=== PATIENT | female | born 1960 ===

== ENCOUNTER 2017-09-02 18:20 | Inpatient (IN) | payer BC, OTHER ==
--- NOTE | 2017-09-02 19:45 | C.PDOC ---
History Of Present Illness Patient presents to the ER with a complaint of not feeling well, states she had palpitations and a possible syncopal episode today. Patient had dental surgery yesterday and was put on decreased doses of coumadin. Patient takes coumadin for a mitral valve replacement she had due to rheumatic fever. Denies fever, chills, SOB, or chest pain. Time Seen by Provider: 09/02/17 19:44 Chief Complaint (Nursing): Palpitations History Per: Patient History/Exam Limitations: no limitations Onset/Duration Of Symptoms: Hrs Current Symptoms Are (Timing): Still Present Associated Symptoms: Other (Palpitations, Possible syncope). denies: Chest Pain , Dyspnea, Dizziness, Blurred Vision, Focal Weakness, Headache Quality Of Symptoms: Other (Palpitations) Severity: Moderate Pain Scale Rating Of: 4 Exacerbating Factor(s): Pos: Recent Change In Medication Recent travel outside of the [place]: No Additional History Per: Family Past Medical History Reviewed: Historical Data, Nursing Documentation, Vital Signs Vital Signs: Last Vital Signs Temp 98 F 09/02/17 18:30 Pulse Resp 105 H 09/02/17 18:30 BP 104/70 09/02/17 18:30 Pulse Ox 98 09/02/17 20:24 - Medical History PMH: Anxiety, Back Problems (chronic neck and upper back pain), CAD, Cardia Arrhythmia, Depression, Gastritis, Hypercholesterolemia Surgical History: Appendectomy, Pacemaker, (x 3) - [facility] APPLICATION OF SPLINT (11/05/14) Family History: States: No Known Family Hx - Social History Hx Tobacco Use: No Hx Alcohol Use: No Hx Substance Use: No - Immunization History Hx Tetanus Toxoid Vaccination: No Hx Influenza Vaccination: No Hx Pneumococcal Vaccination: No Review Of Systems Constitutional: Negative for: Fever, Chills Eyes: Negative for: Redness Cardiovascular: Positive for: Palpitations. Negative for: Chest Pain Respiratory: Negative for: Shortness of Breath Gastrointestinal: Negative for: Nausea, Vomiting Genitourinary: Negative for: Dysuria Musculoskeletal: Negative for: Back Pain Skin: Negative for: Rash Neurological: Positive for: Other (Possible syncopal episode) Psych: Negative for: Anxiety Physical Exam - Physical Exam Appears: Non-toxic, No Acute Distress Skin: Warm, Dry Head: Normacephalic Eye(s): bilateral: Normal Inspection, PERRL, EOMI Oral Mucosa: Moist Neck: Supple Chest: Symmetrical, No Tenderness, Other (pacer right side) Cardiovascular: Rhythm Regular, Murmur (Click, 2/6 systolic murmur) Respiratory: No Rales, No Rhonchi, No Wheezing Gastrointestinal/Abdominal: Soft, No Tenderness Back: Normal Inspection Extremity: Normal ROM Extremity: Bilateral: Atraumatic Pulses: Left Dorsalis Pedis: Normal, Right Dorsalis Pedis: Normal Neurological/Psych: Oriented x3, Normal Speech, Normal Cranial Nerves Gait: Steady ED Course And Treatment - Laboratory Results Result Diagrams: 09/02/17 20:24 09/02/17 20:24 ECG: Interpreted By Me, Viewed By Me ECG Rhythm: Sinus Rhythm (104), Nonspecific Changes (atrial sensed ventricular paced rhythm) O2 Sat by Pulse Oximetry: 98 Pulse Ox Interpretation: Normal - Radiology CXR: Interpreted by Me, Viewed By Me CXR Interpretation: Yes: Other (pacermaker left, MVR in place). No: Infiltrates , Fracture, Pnemothorax Progress Note: CT head, EKG, blood work, CXR, and urinalysis ordered. Disposition Discussed With : Brent Conklin Comment: accepted the pt on his service and took over the care at Doctor Will See Patient In The: ED Counseled Patient/Family Regarding: Studies Performed, Diagnosis - Disposition Disposition: HOSPITALIZED Disposition Time: 19:45 Condition: FAIR Forms: [facility] (Kiswahili) - POA Present On Arrival: None - Clinical Impression Clinical Impression: NSTEMI (non-ST elevated myocardial infarction), Palpitations, Syncope - Scribe Statement The provider has reviewed the documentation as recorded by the Scribricardo Thomas All medical record entries made by the Kristineibe were at my direction and personally dictated by me. I have reviewed the chart and agree that the record accurately reflects my personal performance of the history, physical exam, medical decision making, and the department course for this patient. I have also personally directed, reviewed, and agree with the discharge instructions and disposition. Decision To Admit - Pt Status Changed To: Hospital Disposition Of: Inpatient - Admit Certification Admit to Inpatient:: After my assessment, the patient will require hospitalization for at least two midnights. This is because of the severity of symptoms shown, intensity of services needed, and/or the medical risk in this patient being treated as an outpatient. - InPatient: Physician Admission Certification: I certify that this patient requires 2 or more midnights of care for the following reason:: After my assessment, the patient will require hospitalization for at least two midnights. This is because of the severity of symptoms shown, intensity of services needed, and/or the medical risk in this patient being treated as an outpatient. - . Bed Request Type: Telemetry Admitting Physician: Brent Conklin Patient Diagnosis: NSTEMI (non-ST elevated myocardial infarction), Palpitations, Syncope
[2017-09-02 20:27] LABS: BASO # 0.1 K/uL (0.0-0.2); EOS # 0.1 K/uL (0.0-0.7); EOS % 1.5 % (0.0-4.0); HEMATOCRIT 36.9 % (34.0-47.0); LYMPH # 2.8 K/uL (1.0-4.3); LYMPH % 30.6 % (20.0-40.0); MEAN CELL VOLUME 87.5 fL (81.0-99.0); MEAN CORPUSCULAR HEMOGLOBIN 29.1 pg (27.0-31.0); MEAN CORPUSCULAR HGB CONC 33.3 g/dL (33.0-37.0); MEAN PLATELET VOLUME 8.2 fL (7.2-11.7); MONO # 0.8 K/uL (0.0-0.8); MONO % 9.3 % (0.0-10.0); RED CELL DISTRIBUTION WIDTH 13.8 % (11.5-14.5); WHITE BLOOD COUNT 9.1 K/uL (4.8-10.8)
[2017-09-02 20:44] LABS: RBC URINE 9 /hpf (0-3); URINE BACTERIA OCC (<OCC); URINE BILIRUBIN NEGATIVE (NEGATIVE); URINE BLOOD 2+ (NEGATIVE); URINE COLOR Straw (YELLOW); URINE GLUCOSE (UA) NORMAL (Normal); URINE KETONE NEGATIVE (NEGATIVE); URINE LEUKOCYTE ESTERASE 1+ Leu/uL (Negative); URINE PROTEIN NEGATIVE (NEGATIVE); URINE UROBILINOGEN NORMAL mg/dL (0.2-1.0); WBC URINE 2 /hpf (0-5)
[2017-09-02 20:44] LABS: ALKALINE PHOSPHATASE 79 U/L (38-126); ALT/SGPT 50 U/L (9-52); AST/SGOT 37 U/L (14-36); BILIRUBIN,TOTAL 0.4 mg/dL (0.2-1.3); BLOOD UREA NITROGEN 15 mg/dL (7-17); CALCIUM 8.6 mg/dl (8.6-10.4); CARBON DIOXIDE 32 mmol/L (22-30); CHLORIDE 103 mmol/L (98-107); GFR AFRICAN-AMERICAN > 60; GLUCOSE,RANDOM 92 mg/dL (65-105); POTASSIUM 3.5 mmol/L (3.6-5.2); SODIUM 143 mmol/L (132-148); TOTAL PROTEIN 8.3 g/dL (6.3-8.3)
[2017-09-02 20:56] LABS: INR 2.9
[2017-09-02] MEDS ORDERED: Oxycodone/Acetaminophen 5/325 mg Tab PO STA (21:09)
[2017-09-02] MEDS ORDERED: Oxycodone/Acetaminophen 5/325 mg Tab ONE (21:15)
[2017-09-02] MEDS ORDERED: Home Med 1 UNIT (Acetaminophen/Oxycodone Hydr [Percocet 10/325 Mg Tab] 1 TAB) PO PRN (21:28)
[2017-09-02] MEDS ORDERED: AMOXICILLIN 500 MG PO SCH (22:00)
[2017-09-02] MEDS ORDERED: CLONAZEPAM 1 MG PO SCH (22:00)
[2017-09-02] MEDS ORDERED: Oxycodone/Acetaminophen 5/325 mg Tab PO PRN (22:45)
[2017-09-03] MEDS: Oxycodone/Acetaminophen 5/325 mg Tab PO PRN ×3 (04:46→17:44)
[2017-09-03 05:19] LABS: TROPONIN I 0.392 ng/mL (0.00-0.120)
[2017-09-03 08:14] LABS: BASO # 0.1 K/uL (0.0-0.2); BASO % 1.1 % (0.0-2.0); EOS # 0.1 K/uL (0.0-0.7); EOS % 2.7 % (0.0-4.0); HEMATOCRIT 34.5 % (34.0-47.0); LYMPH # 2.1 K/uL (1.0-4.3); LYMPH % 39.2 % (20.0-40.0); MEAN CELL VOLUME 87.7 fL (81.0-99.0); MEAN CORPUSCULAR HEMOGLOBIN 29.3 pg (27.0-31.0); MEAN CORPUSCULAR HGB CONC 33.4 g/dL (33.0-37.0); MEAN PLATELET VOLUME 8.3 fL (7.2-11.7); MONO # 0.4 K/uL (0.0-0.8); MONO % 7.8 % (0.0-10.0); NRBC % 0.1 % (0.0-2.0); RED CELL DISTRIBUTION WIDTH 13.7 % (11.5-14.5); WHITE BLOOD COUNT 5.5 K/uL (4.8-10.8)
[2017-09-03 08:25] LABS: ALB/GLOB RATIO 1.4 (1.0-2.1); ALKALINE PHOSPHATASE 72 U/L (38-126); ALT/SGPT 36 U/L (9-52); AST/SGOT 28 U/L (14-36); BILIRUBIN,TOTAL 0.4 mg/dL (0.2-1.3); BLOOD UREA NITROGEN 14 mg/dL (7-17); CALCIUM 8.3 mg/dl (8.6-10.4); CARBON DIOXIDE 30 mmol/L (22-30); CHLORIDE 108 mmol/L (98-107); CHOLESTEROL 208 mg/dL (0-199); GFR AFRICAN-AMERICAN > 60; GLUCOSE,RANDOM 96 mg/dL (65-105); POTASSIUM 4.2 mmol/L (3.6-5.2); SODIUM 144 mmol/L (132-148); TOTAL PROTEIN 6.4 g/dL (6.3-8.3)
[2017-09-03 08:29] LABS: INR 3.2
--- NOTE | 2017-09-03 09:06 | CT ---
PROCEDURE: CT HEAD WITHOUT CONTRAST. HISTORY: syncope COMPARISON: None available. TECHNIQUE: Axial computed tomography images were obtained through the head/brain without intravenous contrast. Radiation dose: Total exam DLP = 865.69 mGy-cm. This CT exam was performed using one or more of the following dose reduction techniques: Automated exposure control, adjustment of the mA and/or kV according to patient size, and/or use of iterative reconstruction technique. FINDINGS: HEMORRHAGE: No intracranial hemorrhage. BRAIN: No mass effect or edema. Mild atrophy. VENTRICLES: Unremarkable. No hydrocephalus. CALVARIUM: Unremarkable. PARANASAL SINUSES: Unremarkable as visualized. No significant inflammatory changes. MASTOID AIR CELLS: Unremarkable as visualized. No inflammatory changes. OTHER FINDINGS: None. IMPRESSION: No evidence of acute intracranial hemorrhage intracranial collection mass effect or midline shift
--- NOTE | 2017-09-03 09:25 | RAD ---
PROCEDURE: CHEST RADIOGRAPH, 1 VIEW HISTORY: chest pain COMPARISON: Comparison is made to 11/05/2014 FINDINGS: LUNGS: No evidence of focal infiltrate or consolidation in the lungs PLEURA: No pneumothorax or pleural fluid seen. CARDIOVASCULAR: The cardiac silhouette is normal in size. Left-sided pacemaker is seen in place. Patient status post sternotomy. OSSEOUS STRUCTURES: No significant abnormalities. VISUALIZED UPPER ABDOMEN: Normal. OTHER FINDINGS: None. IMPRESSION: No significant interval change since the previous exam noted. No radiographic evidence of acute pulmonary disease.
[2017-09-03 09:34] LABS: THYROID STIMULATING HORMONE 1.55 mIU/L (0.46-4.68)
[2017-09-03] MEDS: Ergocalciferol 50,000 Intl Units Cap PO SCH (10:51)
[2017-09-03] MEDS: Pantoprazole 40 mg EC Tab PO SCH (10:52)
[2017-09-03 12:14] LABS: TROPONIN I 0.231 ng/mL (0.00-0.120)
--- NOTE | 2017-09-03 23:20 | CON ---
CARDIOLOGY CONSULTATION REQUESTED BY: Brent Conklin MD. LOCATION: Presently in [address] HISTORY OF PRESENT ILLNESS: Requested to see this 57 years old female with a history of aortic valve replacement with mechanical prosthesis many years ago as well as permanent pacemaker, admitted after enormous fainting episode and not feeling well. Apparently, she was taking a shower and had shower and she was feeling as fainting and she slowly sat on the shower stall and finally came out. She told me that she did know that she was totally conscious and that she did not hit the floor in anyway. She did not pass out. For the rest of the day, she was feeling uneasy and she talked to her friends and family and they advised her to come to the emergency room several hours later. On arrival here, she appeared to be relatively stable, in no distress whatsoever. However, in view of the history with a valve replacement and pacemaker, etc. and the initial troponins were mildly borderline elevated, she was admitted there for further treatment. Several days ago, she underwent oral surgery and she was taking medications including amoxicillin and Percocet. However, she takes Percocet chronically for years due to some significant arthritis. Presently, she appears totally stable. Denies any problems except for the chronic pain that she has had. She is ambulatory, walking around and may have walked around the hallway and she felt totally fine. PAST MEDICAL HISTORY: As mentioned includes aortic valve replacement about 5 to 7 years ago. This was done in the [facility] in [place] due to a rheumatic fever during the childhood. This was replaced with a [employer] mechanical prosthesis and she has been all alone anticoagulated with warfarin. Her INR today is about 3.2. At the same time, she underwent permanent pacemaker insertion. ALLERGIES: SHE HAS ALLERGY TO TETANUS TOXOID. SOCIAL HISTORY: She does not smoke or drink. PHYSICAL EXAMINATION: GENERAL: Physical exam reveals a senior female, appears younger for her age, in no distress whatsoever. VITAL SIGNS: Remains totally stable. Here, latest blood pressure is about 120/80. She is afebrile and O2 saturation is 95 on room air. SKIN: Warm, dry. No cyanosis. No edema. HEAD, EAR, NOSE AND THROAT: Basically unremarkable at this point in time. NECK: Supple, although she has a lot of pain in the neck chronically "due to arthritis and disk problems." CHEST: Lung sounds are totally clear to auscultation. There is a mid sternotomy scar. No thrills. Auscultation reveals heart sounds normal in intensity and there is a metallic click due to the artificial heart valve. ABDOMEN: Unremarkable. CENTRAL NERVOUS SYSTEM: Totally intact. COMPLEMENTARY DATA: CBC is unremarkable. INR today is 3.2, yesterday 2.9, which is very acceptable because of the mechanical prosthesis. Troponin that had been trending down initially at 0.68, second one at 0.39 and the third one at 0.23, trending down. BNP about 2000. Lipids are elevated with total cholesterol 2.8, LDL of 141. EKG showing the AV sequential pacemaker. Chest x-ray, we cannot view at this point in time due to some technical difficulties. There is no evidence of any acute cardiopulmonary issues. I will try to look at the x-rays sometime later when the system is up. I am getting some issues here. ASSESSMENT: Status post aortic valve replacement, status post pacemaker, almost fainting episode yesterday, multifactorial, perhaps vasovagal related to the medications. Cardiac arrhythmias cannot be excluded. Mildly elevated troponins. PLAN: We will continue observation here. She is back on some of her medications. She is totally stable. Depending upon further investigation including echocardiogram, we will consider cardiac stress testing. Reddy Mcclendon MD cc: Brent Conklin MD MTDD
[2017-09-04] MEDS: Oxycodone/Acetaminophen 5/325 mg Tab PO PRN ×4 (03:08→23:47)
[2017-09-04] MEDS: Pantoprazole 40 mg EC Tab PO SCH (09:35)
[2017-09-04 11:25] LABS: INR 3.1
--- NOTE | 2017-09-04 23:16 | CARD ---
APPROVED REPORT EXAM: Two-dimensional and M-mode echocardiogram with Doppler and color Doppler. Other Information Quality : LimitedRhythm : INDICATION Cardiac Disease: CAD Syncope Non STEMI Palpitations Surgery/Intervention Status/Post Aortic Valve Replacement: Mechanical Pacemaker: RISK FACTORS Hyperlipidemia 2D DIMENSIONS IVSd1.1 (0.7-1.1cm)LVDd4.8 (3.9-5.9cm) LVOT Diameter2.4 (1.8-2.4cm)PWd1.0 (0.7-1.1cm) LVDs2.6 (2.5-4.0cm)FS (%) 46.6 % LVEF (%)78.0 (>50%) Aortic Valve AoV Peak Nuzwxuax871.1cm/sAoV VTI37.4cmAO Peak GR.22mmHg LVOT Peak Joxertpi948.0cm/sLVOT VTI17.54cmAO Mean GR.13mmHg NICKI (VMAX)1.39gj1XYG (VTI)2.20cm2 Mitral Valve MV E Vbtlrwrx23.3cm/sMV A Ucetkahp44.0cm/sE/A ratio0.9 TDI E/Lateral E'0.0E/Medial E'0.0 Tricuspid Valve TR Peak Hacsrric391hd/sTR Peak Gr.65yfEwIUAG18vpGl LEFT VENTRICLE The left ventricle is normal size. There is borderline concentric left ventricular hypertrophy. Left ventricle systolic function is normal. The Ejection Fraction is 60-65%. There is mild hypokinesis in the mid-anterior wall. Transmitral Doppler flow pattern is Grade I-abnormal relaxation pattern. There is no ventricular septal defect visualized. RIGHT VENTRICLE The right ventricle is normal size. The right ventricular systolic function is normal. There is a pacemaker lead in the right ventricle. ATRIA The left atrium is borderline dilated. The right atrium size is normal. AORTIC VALVE There is trace aortic regurgitation. With a probable central jet, although unclear but probably no perivalvular leak. Peak gradient of 22 mmHg across the aortic valve, probably acceptable range for a mechanical valve There is a mechanical aortic valve prosthesis. The prosthetic aortic valve appears well seated. Bioprosthesis leaflets are not well visualized. MITRAL VALVE Mitral annular calcification is mild. Mildly thickened posterior leaflet, regurgitation could not be ruled out There is no evidence of mitral valve prolapse. Mitral regurgitation is mild. TRICUSPID VALVE The tricuspid valve is normal in structure. There is mild to moderate tricuspid regurgitation. There is no pulmonary hypertension. PULMONIC VALVE The pulmonic valve is not well visualized. There is trace pulmonic valvular regurgitation. GREAT VESSELS The aortic root is mildly enlarged. 3.9 cm The ascending aorta is normal in size. The IVC is normal in size and collapses >50% with inspiration. PERICARDIAL EFFUSION There is no pericardial effusion. <Conclusion> There is borderline concentric left ventricular hypertrophy. There is mild hypokinesis in the mid-anterior wall. Transmitral Doppler flow pattern is Grade I-abnormal relaxation pattern. Left ventricle systolic function is normal. The Ejection Fraction is 60-65%. There is a mechanical aortic valve prosthesis. The prosthetic aortic valve appears well seated. Mitral regurgitation is mild.
--- NOTE | 2017-09-05 00:42 | CARD ---
APPROVED REPORT EKG Measurement Heart [id number] [place] [id number] <Conclusion> Atrial-sensed ventricular-paced rhythm Abnormal ECG
--- NOTE | 2017-09-05 00:42 | CARD ---
APPROVED REPORT EKG Measurement Heart [id number] [place] 184P36 [id number] <Conclusion> Atrial-sensed ventricular-paced rhythm Abnormal ECG
--- NOTE | 2017-09-05 01:26 | CP.PCM.HP ---
History of Present Illness - History of Present Illness History of Present Illness: CC: Passed out History of Present Illness: A 57yoF with H/O VHD S/P AV Mechanical Valve Rplacement on Chronic Anticoagulation presented to the ER with a complaint of not feeling well, states she had palpitations and a possible syncopal episode today. Patient had dental surgery yesterday and was put on decreased doses of Coumadin. Patient takes As pr the patint, mitral valve replacement she had was due to rheumatic fever. Denies fever, chills, SOB, or chest pain. H/O Heart block S/p Pacemaker after Valve Replacement surgery. +Dyspnea on exertion. Present on Admission - Present on Admission Any Indicators Present on Admission: No History of DVT/PE: No History of Uncontrolled Diabetes: No Urinary Catheter: No Decubitus Ulcer Present: No Review of Systems - Review of Systems All systems: reviewed and no additional remarkable complaints except - Cardiovascular Cardiovascular: As Per HPI Past Patient History - Infectious Disease Hx of Infectious Diseases: None - Past Medical History & Family History Past Medical History?: Yes Past Family History: Reviewed and not pertinent - Past Social History Smoking Status: Former Smoker Alcohol: None Drugs: Denies - CARDIAC Hx Cardia Arrhythmia: Yes Hx Hypercholesterolemia: Yes Hx Pacemaker: Yes - PULMONARY Hx Respiratory Disorders: No - NEUROLOGICAL Hx Neurological Disorder: Yes Hx Syncope: Yes (due to mitral insufficiency.) - HEENT Hx HEENT Problems: No - RENAL Hx Chronic Kidney Disease: No - ENDOCRINE/METABOLIC Hx Endocrine Disorders: No - HEMATOLOGICAL/ONCOLOGICAL Hx Blood Disorders: No - INTEGUMENTARY Hx Dermatological Problems: No - MUSCULOSKELETAL/RHEUMATOLOGICAL Hx Falls: Yes Hx Herniated Disk: (slipped discs) - GASTROINTESTINAL Hx Gastritis: Yes - GENITOURINARY/GYNECOLOGICAL Hx Genitourinary Disorders: No - PSYCHIATRIC Hx Anxiety: Yes Hx Depression: Yes Hx Substance Use: No - SURGICAL HISTORY Hx Appendectomy: Yes Hx Cardiac Catheterization: Yes Hx Tubal Ligation: No Hx Valve Replacement: Yes (Aortic Mechanical) - ANESTHESIA Hx Anesthesia: Yes Hx Anesthesia Reactions: No Hx Malignant Hyperthermia: No Meds Home Medications: Home Medication List Medication Instructions Recorded Confirmed Type Metoprolol Succinate XL [Toprol XL] 12.5 mg PO DAILY #30 tab 09/14/17 Rx Allergies/Adverse Reactions: Allergies Allergy/AdvReac Type Severity Reaction Status Date / Time tetanus and diphtheria Allergy Mild SWELLING Verified 09/02/17 18:38 toxoids [tetanus & diphtheria toxoids] Physical Exam - Constitutional Appears: Well, No Acute Distress - Head Exam Head Exam: ATRAUMATIC, NORMAL INSPECTION, NORMOCEPHALIC - Eye Exam Eye Exam: EOMI, Normal appearance, PERRL Pupil Exam: NORMAL ACCOMODATION, PERRL - ENT Exam ENT Exam: Mucous Membranes Moist, Normal Exam - Neck Exam Neck exam: Positive for: Full Rom, Normal Inspection - Respiratory Exam Respiratory Exam: Clear to Auscultation Bilateral, NORMAL BREATHING PATTERN - Cardiovascular Exam Cardiovascular Exam: REGULAR RHYTHM, +S1, +S2, Systolic Murmur Additional comments: +Click - GI/Abdominal Exam GI & Abdominal Exam: Normal Bowel Sounds, Soft. absent: Tenderness - Extremities Exam Extremities exam: Positive for: full ROM, normal capillary refill, normal inspection - Back Exam Back exam: NORMAL INSPECTION. absent: CVA tenderness (L), CVA tenderness (R) - Neurological Exam Neurological exam: Alert, CN II-XII Intact, Normal Gait, Oriented x3, Reflexes Normal - Psychiatric Exam Psychiatric exam: Normal Affect, Normal Mood - Skin Skin Exam: Dry, Intact, Normal Color, Warm Results - Vital Signs Recent Vital Signs: Last Vital Signs Temp 97.5 F L 09/04/17 23:20 Pulse 85 09/04/17 23:20 Resp 20 09/04/17 23:20 BP 109/70 09/04/17 23:20 Pulse Ox 96 09/04/17 23:20 - Labs Result Diagrams: 09/14/17 07:17 09/14/17 07:17 Labs: Laboratory Results - last 24 hr 09/04/17 11:08 PT 37.0 H* INR 3.1 - EKG Data EKG comments: Atrial-sensed Ventricular Paced Wide complex Rhythm. - Imaging and Cardiology CT scan - head Status: Report reviewed by me Additional comment: IMPRESSION: No evidence of acute intracranial hemorrhage intracranial collection mass effect or midline shift Chest x-ray Status: Report reviewed by me Additional comment: CHEST RADIOGRAPH: HISTORY: chest pain COMPARISON: Comparison is made to 11/05/2014 FINDINGS: LUNGS: No evidence of focal infiltrate or consolidation in the lungs PLEURA: No pneumothorax or pleural fluid seen. CARDIOVASCULAR: The cardiac silhouette is normal in size. Left-sided pacemaker is seen in place. Patient status post sternotomy. OSSEOUS STRUCTURES: No significant abnormalities. VISUALIZED UPPER ABDOMEN: Normal. OTHER FINDINGS: None. IMPRESSION: No significant interval change since the previous exam noted. No radiographic evidence of acute pulmonary disease. Assessment & Plan (1) Syncope Assessment and Plan: Cardiac Arrhythmia NSTEMI RHD S/P Mechanical Aortic Valve H/O Pacemaker (Interrogate Pacemaker) Chronic Anticoagulation Hold Coumadin for now Start Heparin Infusion once INR O2 Via [place] ASA Serial Trop and EKG TTE Fasting Lipid Profile Cardiology Consulted Status: Acute (2) S/P AVR (aortic valve replacement) Assessment and Plan: Mechanical Valve Cardiology Consulted Continue Anticoagulation Status: Chronic Priority: Medium
--- NOTE | 2017-09-05 01:28 | CP.PCM.PN ---
Subjective - Date & Time of Evaluation Date of Evaluation: 09/04/17 Time of Evaluation: 15:00 - Subjective Subjective: Seen and examined at the bed side. No chest pain or sob at rest. +YEPEZ Objective - Vital Signs/Intake and Output Vital Signs (last 24 hours): Temp Pulse Resp BP Pulse Ox 97.5 F L 85 20 109/70 96 09/04/17 23:20 09/04/17 23:20 09/04/17 23:20 09/04/17 23:20 09/04/17 23:20 Intake and Output: 09/04/17 09/05/17 18:59 06:59 Intake Total 480 500 Balance 480 500 - Medications Medications: Current Medications Amoxicillin (Amoxil 500 Mg Cap) 500 mg PO QID [facility] Last Admin: 09/04/17 22:40 Dose: 500 mg Ascorbic Acid (Vitamin C 500 Mg Tab) 1,000 mg PO DAILY [facility] Last Admin: 09/04/17 09:35 Dose: 1,000 mg Aspirin (Aspirin) 325 mg PO DAILY [facility] Last Admin: 09/04/17 09:35 Dose: 325 mg Clonazepam (Klonopin) 1 mg PO [facility] Last Admin: 09/04/17 22:29 Dose: 1 mg Docusate Sodium (Colace) 100 mg PO BID [facility] Last Admin: 09/04/17 18:10 Dose: 100 mg Docusate Sodium (Colace) 100 mg PO BID [facility] Last Admin: 09/04/17 18:10 Dose: Not Given Ergocalciferol (Drisdol 50,000 Intl Units Cap) 1 cap PO Q7D [facility] Last Admin: 09/03/17 10:51 Dose: Not Given Mirtazapine (Remeron) 30 mg PO [facility] Last Admin: 09/04/17 22:28 Dose: 30 mg Oxycodone/Acetaminophen (Percocet 5/325 Mg Tab) 2 tab PO Q6H PRN PRN Reason: Pain, severe (8-10) Last Admin: 09/04/17 23:47 Dose: 2 tab Pantoprazole Sodium (Protonix Ec Tab) 40 mg PO DAILY [facility] Last Admin: 09/04/17 09:35 Dose: 40 mg Rosuvastatin Calcium (Crestor) 5 mg PO [facility] Last Admin: 09/04/17 22:28 Dose: 5 mg - Labs Labs: 09/03/17 07:57 09/03/17 07:57 PT 37.0 SECONDS (9.7-12.2) H* 09/04/17 11:08 INR 3.1 09/04/17 11:08 APTT 38 SECONDS (21-34) H 09/02/17 20:24 - Constitutional Appears: Well, No Acute Distress - Head Exam Head Exam: ATRAUMATIC, NORMAL INSPECTION, NORMOCEPHALIC - Eye Exam Eye Exam: EOMI, Normal appearance, PERRL Pupil Exam: NORMAL ACCOMODATION, PERRL - ENT Exam ENT Exam: Mucous Membranes Moist, Normal Exam - Neck Exam Neck Exam: Full ROM, Normal Inspection. absent: Lymphadenopathy - Respiratory Exam Respiratory Exam: Clear to Ausculation Bilateral, NORMAL BREATHING PATTERN - Cardiovascular Exam Cardiovascular Exam: REGULAR RHYTHM, +S1, +S2, Murmur Additional comments: +Click. MIdline surgica scars.Left chest PAcemaker . - GI/Abdominal Exam GI & Abdominal Exam: Soft, Normal Bowel Sounds. absent: Tenderness - Extremities Exam Extremities Exam: Full ROM, Normal Capillary Refill, Normal Inspection. absent : Joint Swelling, Pedal Edema - Back Exam Back Exam: NORMAL INSPECTION - Neurological Exam Neurological Exam: Alert, Awake, CN II-XII Intact, Normal Gait, Oriented x3 - Psychiatric Exam Psychiatric exam: Normal Affect, Normal Mood - Skin Skin Exam: Dry, Intact, Normal Color, Warm Assessment and Plan (1) Syncope Assessment & Plan: Cardiac Arrhythmia NSTEMI RHD S/P Mechanical Aortic Valve H/O Pacemaker (Interrogate Pacemaker) Chronic Anticoagulation Hold Coumadin for now Start Heparin Infusion once INR O2 Via [place] ASA Serial Trop and EKG TTE Fasting Lipid Profile Cardiology Consulted Status: Acute (2) S/P AVR (aortic valve replacement) Assessment and Plan: Mechanical Valve Cardiology Consulted Continue Anticoagulation Status: Acute
[2017-09-05 07:31] LABS: BASO # 0.1 K/uL (0.0-0.2); BASO % 2.5 % (0.0-2.0); EOS # 0.2 K/uL (0.0-0.7); EOS % 3.3 % (0.0-4.0); HEMATOCRIT 36.3 % (34.0-47.0); LYMPH # 1.9 K/uL (1.0-4.3); LYMPH % 33.5 % (20.0-40.0); MEAN CELL VOLUME 87.8 fL (81.0-99.0); MEAN CORPUSCULAR HEMOGLOBIN 29.7 pg (27.0-31.0); MEAN CORPUSCULAR HGB CONC 33.8 g/dL (33.0-37.0); MEAN PLATELET VOLUME 8.7 fL (7.2-11.7); MONO # 0.4 K/uL (0.0-0.8); MONO % 7.6 % (0.0-10.0); RED CELL DISTRIBUTION WIDTH 13.5 % (11.5-14.5); WHITE BLOOD COUNT 5.6 K/uL (4.8-10.8)
[2017-09-05 07:38] LABS: INR 3.2
[2017-09-05] MEDS ORDERED: Aminophylline 25 mg/ml Inj ONE (09:10)
[2017-09-05] MEDS: Pantoprazole 40 mg EC Tab PO SCH (10:53)
[2017-09-05] MEDS: Oxycodone/Acetaminophen 5/325 mg Tab PO PRN ×2 (13:23→19:59)
--- NOTE | 2017-09-05 18:12 | CP.PCM.PN ---
Subjective - Date & Time of Evaluation Date of Evaluation: 09/05/17 Time of Evaluation: 15:00 Objective - Vital Signs/Intake and Output Vital Signs (last 24 hours): Temp Pulse Resp BP Pulse Ox 97.7 F 92 H 20 97/64 L 95 09/05/17 16:00 09/05/17 16:00 09/05/17 16:00 09/05/17 16:00 09/05/17 16:00 Intake and Output: 09/05/17 09/05/17 06:59 18:59 Intake Total 500 420 Balance 500 420 - Medications Medications: Current Medications Amoxicillin (Amoxil 250 Mg Cap) 500 mg PO QID [facility] Last Admin: 09/05/17 17:07 Dose: 500 mg Ascorbic Acid (Vitamin C 500 Mg Tab) 1,000 mg PO DAILY [facility] Last Admin: 09/05/17 10:54 Dose: Not Given Aspirin (Aspirin) 325 mg PO DAILY [facility] Last Admin: 09/05/17 10:53 Dose: Not Given Clonazepam (Klonopin) 1 mg PO HS [facility] Last Admin: 09/04/17 22:29 Dose: 1 mg Docusate Sodium (Colace) 100 mg PO BID [facility] Last Admin: 09/05/17 17:07 Dose: 100 mg Ergocalciferol (Drisdol 50,000 Intl Units Cap) 1 cap PO Q7D [facility] Last Admin: 09/03/17 10:51 Dose: Not Given Mirtazapine (Remeron) 30 mg PO HS [facility] Last Admin: 09/04/17 22:28 Dose: 30 mg Oxycodone/Acetaminophen (Percocet 5/325 Mg Tab) 2 tab PO Q6H PRN PRN Reason: Pain, severe (8-10) Last Admin: 09/05/17 13:23 Dose: 2 tab Pantoprazole Sodium (Protonix Ec Tab) 40 mg PO DAILY [facility] Last Admin: 09/05/17 10:53 Dose: Not Given Rosuvastatin Calcium (Crestor) 5 mg PO HS [facility] Last Admin: 09/04/17 22:28 Dose: 5 mg - Labs Labs: 09/05/17 07:17 09/03/17 07:57 PT 37.7 SECONDS (9.7-12.2) H* 09/05/17 07:17 INR 3.2 09/05/17 07:17 APTT 38 SECONDS (21-34) H 09/02/17 20:24
--- NOTE | 2017-09-05 18:12 | CP.PCM.PN ---
Subjective - Date & Time of Evaluation Date of Evaluation: 09/05/17 Time of Evaluation: 17:00 Objective - Vital Signs/Intake and Output Vital Signs (last 24 hours): Temp Pulse Resp BP Pulse Ox 97.7 F 92 H 20 97/64 L 95 09/05/17 16:00 09/05/17 16:00 09/05/17 16:00 09/05/17 16:00 09/05/17 16:00 Intake and Output: 09/05/17 09/05/17 06:59 18:59 Intake Total 500 420 Balance 500 420 - Medications Medications: Current Medications Amoxicillin (Amoxil 250 Mg Cap) 500 mg PO QID [facility] Last Admin: 09/05/17 17:07 Dose: 500 mg Ascorbic Acid (Vitamin C 500 Mg Tab) 1,000 mg PO DAILY [facility] Last Admin: 09/05/17 10:54 Dose: Not Given Aspirin (Aspirin) 325 mg PO DAILY [facility] Last Admin: 09/05/17 10:53 Dose: Not Given Clonazepam (Klonopin) 1 mg PO HS [facility] Last Admin: 09/04/17 22:29 Dose: 1 mg Docusate Sodium (Colace) 100 mg PO BID [facility] Last Admin: 09/05/17 17:07 Dose: 100 mg Ergocalciferol (Drisdol 50,000 Intl Units Cap) 1 cap PO Q7D [facility] Last Admin: 09/03/17 10:51 Dose: Not Given Mirtazapine (Remeron) 30 mg PO HS [facility] Last Admin: 09/04/17 22:28 Dose: 30 mg Oxycodone/Acetaminophen (Percocet 5/325 Mg Tab) 2 tab PO Q6H PRN PRN Reason: Pain, severe (8-10) Last Admin: 09/05/17 13:23 Dose: 2 tab Pantoprazole Sodium (Protonix Ec Tab) 40 mg PO DAILY [facility] Last Admin: 09/05/17 10:53 Dose: Not Given Rosuvastatin Calcium (Crestor) 5 mg PO HS [facility] Last Admin: 09/04/17 22:28 Dose: 5 mg - Labs Labs: 09/05/17 07:17 09/03/17 07:57 PT 37.7 SECONDS (9.7-12.2) H* 09/05/17 07:17 INR 3.2 09/05/17 07:17 APTT 38 SECONDS (21-34) H 09/02/17 20:24
--- NOTE | 2017-09-05 22:20 | PN ---
DATE: LOCATION: Room 565 A. SUBJECTIVE: Remains relatively stable, but the stress test with nuclear imaging is pending. No evidence of any dizziness or cardiac dysrhythmias here, paced. Telemetry showing an atrial sensed ventricular paced rhythm. She is eating relatively well, no issues. INR is around 3. PHYSICAL EXAMINATION: GENERAL: Alert, oriented, in significant pain because of cervical radiculopathy, etc. Other than that, nothing extraordinary. VITAL SIGNS: Remains totally stable, blood pressure, pulse, and respirations within physiological parameters, so is the temperature, all recorded here in the EHR. Telemetry showing again sinus rhythm with atrial sensed ventricular paced rhythm. CARDIOPULMONARY: From the cardiopulmonary view point, jugular veins, carotids are normal. Precordium is unremarkable except for the mid sternotomy scar from remote heart surgery for aortic valve replacement. Heart sounds normal in intensity, metallic clicks easily heard. LUNGS: Totally clear. ABDOMEN AND LOWER EXTREMITIES: Unremarkable. LABORATORY DATA: INR around 3.1 also today, on warfarin 3 mg and this has been checked every day. PLAN: After the stress test, depending upon the situation, if normal, she will be discharged. If abnormal, then we will consider consultation with an billing administrator. In this case, Dr. Hall knows her from the past. He was the one who took her to [facility] for the valve replacement, cardiac cath, etc. Reddy Mcclendon MD MTDDheeraj
[2017-09-06 08:14] LABS: BASO # 0.1 K/uL (0.0-0.2); BASO % 0.9 % (0.0-2.0); EOS # 0.2 K/uL (0.0-0.7); EOS % 3.1 % (0.0-4.0); HEMATOCRIT 35.2 % (34.0-47.0); LYMPH # 1.9 K/uL (1.0-4.3); LYMPH % 33.4 % (20.0-40.0); MEAN CELL VOLUME 87.8 fL (81.0-99.0); MEAN CORPUSCULAR HGB CONC 34.2 g/dL (33.0-37.0); MEAN PLATELET VOLUME 8.3 fL (7.2-11.7); MONO # 0.4 K/uL (0.0-0.8); MONO % 7.7 % (0.0-10.0); RED CELL DISTRIBUTION WIDTH 13.5 % (11.5-14.5); WHITE BLOOD COUNT 5.8 K/uL (4.8-10.8)
[2017-09-06] MEDS: Oxycodone/Acetaminophen 5/325 mg Tab PO PRN ×3 (08:18→22:01)
[2017-09-06 08:19] LABS: INR 2.5
[2017-09-06] MEDS: Pantoprazole 40 mg EC Tab PO SCH (09:10)
--- NOTE | 2017-09-07 02:21 | CP.PCM.PN ---
Subjective - Date & Time of Evaluation Date of Evaluation: 09/06/17 Time of Evaluation: 20:00 Objective - Vital Signs/Intake and Output Vital Signs (last 24 hours): Temp Pulse Resp BP Pulse Ox 97.6 F 80 20 99/61 L 96 09/06/17 23:02 09/07/17 01:48 09/06/17 23:02 09/06/17 23:02 09/06/17 23:02 Intake and Output: 09/06/17 09/07/17 18:59 06:59 Intake Total 360 Balance 360 - Medications Medications: Current Medications Amoxicillin (Amoxil 250 Mg Cap) 500 mg PO QID [facility] Last Admin: 09/06/17 22:01 Dose: 500 mg Ascorbic Acid (Vitamin C 500 Mg Tab) 1,000 mg PO DAILY [facility] Last Admin: 09/06/17 09:10 Dose: 1,000 mg Aspirin (Aspirin) 325 mg PO DAILY [facility] Last Admin: 09/06/17 09:10 Dose: 325 mg Clonazepam (Klonopin) 1 mg PO HS [facility] Last Admin: 09/06/17 22:01 Dose: 1 mg Docusate Sodium (Colace) 100 mg PO BID [facility] Last Admin: 09/06/17 18:48 Dose: 100 mg Ergocalciferol (Drisdol 50,000 Intl Units Cap) 1 cap PO Q7D [facility] Last Admin: 09/03/17 10:51 Dose: Not Given Lactulose (Enulose) 20 gm PO BID PRN PRN Reason: Constipation Last Admin: 09/06/17 09:12 Dose: 20 gm Mirtazapine (Remeron) 30 mg PO [facility] Last Admin: 09/06/17 22:02 Dose: 30 mg Oxycodone/Acetaminophen (Percocet 5/325 Mg Tab) 2 tab PO Q6H PRN PRN Reason: Pain, severe (8-10) Last Admin: 09/06/17 22:01 Dose: 2 tab Pantoprazole Sodium (Protonix Ec Tab) 40 mg PO DAILY [facility] Last Admin: 09/06/17 09:10 Dose: 40 mg Rosuvastatin Calcium (Crestor) 5 mg PO HS [facility] Last Admin: 09/06/17 22:02 Dose: 5 mg - Labs Labs: 09/06/17 08:07 09/03/17 07:57 PT 28.7 SECONDS (9.7-12.2) H D 09/06/17 08:07 INR 2.5 D 09/06/17 08:07 APTT 38 SECONDS (21-34) H 09/02/17 20:24
[2017-09-07 08:27] LABS: BASO # 0.1 K/uL (0.0-0.2); BASO % 1.2 % (0.0-2.0); EOS # 0.2 K/uL (0.0-0.7); EOS % 2.8 % (0.0-4.0); HEMATOCRIT 38.1 % (34.0-47.0); LYMPH % 34.1 % (20.0-40.0); MEAN CELL VOLUME 88.6 fL (81.0-99.0); MEAN CORPUSCULAR HEMOGLOBIN 28.9 pg (27.0-31.0); MEAN CORPUSCULAR HGB CONC 32.6 g/dL (33.0-37.0); MEAN PLATELET VOLUME 8.3 fL (7.2-11.7); MONO # 0.3 K/uL (0.0-0.8); MONO % 5.8 % (0.0-10.0); RED CELL DISTRIBUTION WIDTH 13.7 % (11.5-14.5)
[2017-09-07 08:31] LABS: INR 1.5
[2017-09-07] MEDS: Oxycodone/Acetaminophen 5/325 mg Tab PO PRN ×3 (08:39→19:50)
[2017-09-07 08:50] LABS: BLOOD UREA NITROGEN 15 mg/dL (7-17); CALCIUM 8.8 mg/dl (8.6-10.4); CARBON DIOXIDE 32 mmol/L (22-30); CHLORIDE 104 mmol/L (98-107); GFR AFRICAN-AMERICAN > 60; GLUCOSE,RANDOM 91 mg/dL (65-105); POTASSIUM 4.4 mmol/L (3.6-5.2); SODIUM 142 mmol/L (132-148)
[2017-09-07] MEDS ORDERED: Heparin25000 units/250ml 1/2NS 25,000 UNITS/250 ML BAG IV PRN ×2 (09:06→20:00)
[2017-09-07] MEDS: Pantoprazole 40 mg EC Tab PO SCH (09:38)
--- NOTE | 2017-09-07 16:56 | CP.PCM.PN ---
Subjective - Date & Time of Evaluation Date of Evaluation: 09/07/17 Time of Evaluation: 10:00 - Subjective Subjective: [employer] NOTES patient seen today, denies any chest pain, sob , palpitations , dizziness s/p stress test for Cardiac cath in am with Dr. Hall will keep pt NPO post MN Objective - Vital Signs/Intake and Output Vital Signs (last 24 hours): Temp Pulse Resp BP Pulse Ox 97.7 F 99 H 20 99/64 L 97 09/07/17 16:41 09/07/17 16:41 09/07/17 16:41 09/07/17 16:41 09/07/17 16:41 Intake and Output: 09/07/17 09/07/17 06:59 18:59 Intake Total 200 Balance 200 - Medications Medications: Current Medications Amoxicillin (Amoxil 250 Mg Cap) 500 mg PO QID [facility] Last Admin: 09/07/17 13:51 Dose: 500 mg Ascorbic Acid (Vitamin C 500 Mg Tab) 1,000 mg PO DAILY [facility] Last Admin: 09/07/17 09:38 Dose: 1,000 mg Aspirin (Aspirin) 325 mg PO DAILY [facility] Last Admin: 09/07/17 09:38 Dose: 325 mg Clonazepam (Klonopin) 1 mg PO HS [facility] Last Admin: 09/06/17 22:01 Dose: 1 mg Docusate Sodium (Colace) 100 mg PO BID [facility] Last Admin: 09/07/17 09:38 Dose: 100 mg Ergocalciferol (Drisdol 50,000 Intl Units Cap) 1 cap PO Q7D [facility] Last Admin: 09/03/17 10:51 Dose: Not Given Heparin Sodium/Sodium Chloride (Heparin 37445 Units/250ml 1/2 Normal Saline) 25 ,000 units in 250 mls @ 8.056 mls/hr IV .Q24H PRN; Protocol; 12 UNITS/KG/HR PRN Reason: PROTOCOL Last Admin: 09/07/17 11:07 Dose: 12 units/kg/hr, 8.056 mls/hr Lactulose (Enulose) 20 gm PO BID PRN PRN Reason: Constipation Last Admin: 09/06/17 09:12 Dose: 20 gm Lactulose (Enulose) 20 gm PO [facility] Mirtazapine (Remeron) 30 mg PO HS [facility] Last Admin: 09/06/17 22:02 Dose: 30 mg Oxycodone/Acetaminophen (Percocet 5/325 Mg Tab) 2 tab PO Q6H PRN PRN Reason: Pain, severe (8-10) Last Admin: 09/07/17 14:35 Dose: 2 tab Pantoprazole Sodium (Protonix Ec Tab) 40 mg PO DAILY [facility] Last Admin: 09/07/17 09:38 Dose: 40 mg Rosuvastatin Calcium (Crestor) 5 mg PO HS [facility] Last Admin: 09/06/17 22:02 Dose: 5 mg - Labs Labs: 09/07/17 08:15 09/07/17 08:15 PT 17.2 SECONDS (9.7-12.2) H D 09/07/17 08:15 INR 1.5 D 09/07/17 08:15 APTT 34 SECONDS (21-34) 09/07/17 08:15 Assessment and Plan - Assessment and Plan (Free Text) Assessment: a/p 57 YR female with PMHX of CAD, Cardia Arrhythmia, Depression, , Hypercholesterolemia, pacemaker, valve replacement on coumadin , admitted with palpitations an dsyncopal episode s/p stress test D/W Dr. Hall. hold coumadin until procedure and when INR 2 , recommends to start heparin drip and hold MN on Cardiac cath scheduled on monday ( secondary to high INR ) INr - today 1.5 and heparin drip started and follow prootcol will keep pt NPO MN for cardiac cath in am The above plan discussed with patient and Seman
--- NOTE | 2017-09-07 18:29 | PN ---
DATE: LOCATION: Room 565 A. SUBJECTIVE: Remains stable. Denies any chest pain or shortness of breath. Telemetry is unremarkable with ventricular pacemaker, AV sequential atrial tracking. The warfarin has been on hold now for 48 hours. Today, the INR is about 1.5 or so and she was started on heparin drip that will be stopped sometime after midnight in anticipation for her cardiac catheterization tomorrow. She is in good spirits, understands the situation and she wants to get it over with, agrees for the cardiac cath and hopes to get out of here, home soon. She is eating, sleeping well, walking around without any major issues. REVIEW OF SYSTEMS: The rest of review of systems otherwise negative. PHYSICAL EXAMINATION: GENERAL: Alert and oriented, appears in totally stable condition. VITAL SIGNS: Totally stable. Blood pressure is around 120/80; pulse is regular, paced rhythm. Respiratory rate as well as O2 saturation are all normal. She is afebrile. CARDIOPULMONARY: From the cardiopulmonary view point, the jugular veins are non-distended, carotids are normal. Lungs clear. Heart sounds normal in intensity, systolic murmur along the left sternal border as well as metallic clicks from mechanical aortic valve. ABDOMEN AND LOWER EXTREMITIES: Remain unremarkable. LABORATORY DATA: INR as mentioned above, has dropped from the 3 down to 1.5 or so and now on heparin. PLAN: The case was extensively discussed the other day with Dr. Hall, who will be doing the cardiac catheterization tomorrow. This is necessary, based upon the history that she presented with, borderline elevation of the troponin as well as abnormal perfusion myocardial stress test showing distal anterior apex with reversible perfusion defect. In addition, echocardiogram just reviewed, also indicates some slight hypokinesia in the same area. It is possible that this is due to some [place] coronary artery disease; however , because of the prior history of heart surgery, electronic pacemaker, etc., a false positive in the same area cannot be unfortunately excluded. This is the reason to proceed with cardiac catheterization, that will be done tomorrow. Reddy Mcclendon MD SWATI
--- NOTE | 2017-09-08 01:58 | CP.PCM.PN ---
Subjective - Date & Time of Evaluation Date of Evaluation: 09/07/17 Time of Evaluation: 23:00 Objective - Vital Signs/Intake and Output Vital Signs (last 24 hours): Temp Pulse Resp BP Pulse Ox 97.5 F L 98 H 20 100/58 L 98 09/07/17 23:40 09/07/17 23:40 09/07/17 23:40 09/07/17 23:40 09/07/17 23:40 Intake and Output: 09/07/17 09/08/17 18:59 06:59 Intake Total 200 Balance 200 - Medications Medications: Current Medications Amoxicillin (Amoxil 250 Mg Cap) 500 mg PO QID [facility] Last Admin: 09/07/17 21:48 Dose: 500 mg Ascorbic Acid (Vitamin C 500 Mg Tab) 1,000 mg PO DAILY [facility] Last Admin: 09/07/17 09:38 Dose: 1,000 mg Aspirin (Aspirin) 325 mg PO DAILY [facility] Last Admin: 09/07/17 09:38 Dose: 325 mg Clonazepam (Klonopin) 1 mg PO [facility] Last Admin: 09/07/17 21:47 Dose: 1 mg Docusate Sodium (Colace) 100 mg PO BID [facility] Last Admin: 09/07/17 18:34 Dose: 100 mg Ergocalciferol (Drisdol 50,000 Intl Units Cap) 1 cap PO Q7D [facility] Last Admin: 09/03/17 10:51 Dose: Not Given Heparin Sodium/Sodium Chloride (Heparin 49045 Units/250ml 1/2 Normal Saline) 25 ,000 units in 250 mls @ 6.042 mls/hr IV .Q24H PRN; Protocol; 9 UNITS/KG/HR PRN Reason: PROTOCOL Last Admin: 09/07/17 19:50 Dose: 9 units/kg/hr, 6.042 mls/hr Lactulose (Enulose) 20 gm PO BID PRN PRN Reason: Constipation Last Admin: 09/07/17 18:34 Dose: 20 gm Lactulose (Enulose) 20 gm PO [facility] Last Admin: 09/07/17 21:47 Dose: 20 gm Mirtazapine (Remeron) 30 mg PO HS [facility] Last Admin: 09/07/17 21:47 Dose: 30 mg Oxycodone/Acetaminophen (Percocet 5/325 Mg Tab) 2 tab PO Q6H PRN PRN Reason: Pain, severe (8-10) Last Admin: 09/07/17 19:50 Dose: 2 tab Pantoprazole Sodium (Protonix Ec Tab) 40 mg PO DAILY [facility] Last Admin: 09/07/17 09:38 Dose: 40 mg Rosuvastatin Calcium (Crestor) 5 mg PO HS [facility] Last Admin: 09/07/17 21:47 Dose: 5 mg - Labs Labs: 09/07/17 08:15 09/07/17 08:15 PT 17.2 SECONDS (9.7-12.2) H D 09/07/17 08:15 INR 1.5 D 09/07/17 08:15 APTT 171 SECONDS (21-34) H* D 09/07/17 18:07
[2017-09-08 08:48] LABS: INR 1.3
[2017-09-08] MEDS ORDERED: Nitroglycerin 50mg in D5W 50 MG/250 ML BOTTLE IV ONE (09:19)
[2017-09-08] MEDS ORDERED: Midazolam 2 MG/2 ML VIAL ONE (09:19)
[2017-09-08] MEDS ORDERED: Iodixanol 320 MG/ML 100 ML BOTTLE IV ONE ×2 (09:27→10:32)
[2017-09-08] MEDS ORDERED: Lidocaine 4% (Laryng-O-Jet) Kit MM ONE (09:34)
[2017-09-08] MEDS: Pantoprazole 40 mg EC Tab PO SCH ×2 (10:13→13:05)
[2017-09-08] MEDS ORDERED: Iohexol 350mg/ml 100 ML ONE (10:32)
--- NOTE | 2017-09-08 10:35 | CP.PCM.PN ---
Subjective - Date & Time of Evaluation Date of Evaluation: 09/08/17 Time of Evaluation: 10:31 - Subjective Subjective: Patient s/p Cath L Main: Patent LAD: Distal 60% L Cx: Patent RCA: Patent Patient has dyspnea with minimal exertion. Symptoms out of proportion to this non critical CAD Patient hx of IVDA and heavy tobacco use in the past Recommend full pulmonary evaluation If negative may need SINTIA plus possible FFR of distal LAD lesion Resume Heparin drip from 3pm. No coumadin for now OOB to ambulate after 3pm Thank you Objective - Vital Signs/Intake and Output Vital Signs (last 24 hours): Temp Pulse Resp BP Pulse Ox 97.3 F L 80 20 115/69 98 09/08/17 08:28 09/08/17 08:28 09/08/17 08:28 09/08/17 08:28 09/08/17 08:28 - Medications Medications: Current Medications Amoxicillin (Amoxil 250 Mg Cap) 500 mg PO QID [facility] Last Admin: 09/07/17 21:48 Dose: 500 mg Ascorbic Acid (Vitamin C 500 Mg Tab) 1,000 mg PO DAILY [facility] Last Admin: 09/07/17 09:38 Dose: 1,000 mg Aspirin (Aspirin) 325 mg PO DAILY [facility] Last Admin: 09/07/17 09:38 Dose: 325 mg Clonazepam (Klonopin) 1 mg PO HS [facility] Last Admin: 09/07/17 21:47 Dose: 1 mg Docusate Sodium (Colace) 100 mg PO BID [facility] Last Admin: 09/07/17 18:34 Dose: 100 mg Ergocalciferol (Drisdol 50,000 Intl Units Cap) 1 cap PO Q7D [facility] Last Admin: 09/03/17 10:51 Dose: Not Given Heparin Sodium/Sodium Chloride (Heparin 27776 Units/250ml 1/2 Normal Saline) 25 ,000 units in 250 mls @ 6.042 mls/hr IV .Q24H PRN; Protocol; 9 UNITS/KG/HR PRN Reason: PROTOCOL Last Admin: 09/07/17 19:50 Dose: 9 units/kg/hr, 6.042 mls/hr Lactulose (Enulose) 20 gm PO BID PRN PRN Reason: Constipation Last Admin: 09/07/17 18:34 Dose: 20 gm Lactulose (Enulose) 20 gm PO [facility] Last Admin: 09/07/17 21:47 Dose: 20 gm Mirtazapine (Remeron) 30 mg PO HS [facility] Last Admin: 09/07/17 21:47 Dose: 30 mg Oxycodone/Acetaminophen (Percocet 5/325 Mg Tab) 2 tab PO Q6H PRN PRN Reason: Pain, severe (8-10) Last Admin: 09/07/17 19:50 Dose: 2 tab Pantoprazole Sodium (Protonix Ec Tab) 40 mg PO DAILY [facility] Last Admin: 09/07/17 09:38 Dose: 40 mg Rosuvastatin Calcium (Crestor) 5 mg PO HS [facility] Last Admin: 09/07/17 21:47 Dose: 5 mg - Labs Labs: 09/07/17 08:15 09/07/17 08:15 PT 14.1 SECONDS (9.7-12.2) H 09/08/17 08:32 INR 1.3 09/08/17 08:32 APTT 37 SECONDS (21-34) H D 09/08/17 08:32
[2017-09-08] MEDS: Oxycodone/Acetaminophen 5/325 mg Tab PO PRN ×2 (13:06→21:24)
[2017-09-08 13:46] LABS: BASO # 0.1 K/uL (0.0-0.2); BASO % 1.1 % (0.0-2.0); EOS # 0.1 K/uL (0.0-0.7); EOS % 1.8 % (0.0-4.0); HEMATOCRIT 35.4 % (34.0-47.0); LYMPH % 25.2 % (20.0-40.0); MEAN CELL VOLUME 87.8 fL (81.0-99.0); MEAN CORPUSCULAR HEMOGLOBIN 28.9 pg (27.0-31.0); MEAN PLATELET VOLUME 8.1 fL (7.2-11.7); MONO # 0.5 K/uL (0.0-0.8); NRBC % 0.1 % (0.0-2.0); RED CELL DISTRIBUTION WIDTH 13.5 % (11.5-14.5); WHITE BLOOD COUNT 8.1 K/uL (4.8-10.8)
[2017-09-08 13:57] LABS: BLOOD UREA NITROGEN 11 mg/dL (7-17); CALCIUM 8.5 mg/dl (8.6-10.4); CARBON DIOXIDE 32 mmol/L (22-30); CHLORIDE 103 mmol/L (98-107); GFR AFRICAN-AMERICAN > 60; GLUCOSE,RANDOM 102 mg/dL (65-105); MAGNESIUM 1.6 mg/dL (1.6-2.3); POTASSIUM 3.7 mmol/L (3.6-5.2); SODIUM 139 mmol/L (132-148)
--- NOTE | 2017-09-08 14:43 | CP.PCM.CON ---
History of Present Illness - History of Present Illness History of Present Illness: Reason for consultation: dyspnea on exertion Pt is a 57 y/o F with a PMHx of CAD, valve replacement, arrhythmia, pacemaker, hyperlipidemia, and chronic back/ neck pain who presented w/episode of syncope. Patient has also been having shortness of breath with exertion. Patient reports a hx of asthma but has not used an inhaler in three years. Patient reports 15- 20 year history of smoking but never more than half a pack. Patient reports she quit smoking ten years ago. Patient denies being hospitalized for asthma. Patient reports PFTs last done when she had her mitral valve replacement surgery three years ago. Patient was seen and examined at bedside. Pt is s/p cardiac cath and in NAD. Patient resting comfortably. She denies sob, headache, cough, chest pain, n/v, and abdominal pain. PMHx: arrhythmia, rheumatic fever, hyperlipidemia, chronic back/neck pain PSurgHx: aortic valve replacement surgery, pacemaker, appendectomy, SocialHx: social drinking, past smoker no more than half a pack socially for 15- 20 years. Denies illicit drug use. Past Patient History - Infectious Disease Hx of Infectious Diseases: None - Past Medical History & Family History Past Medical History?: Yes - Past Social History Smoking Status: Former Smoker - CARDIAC Hx Cardia Arrhythmia: Yes Hx Hypercholesterolemia: Yes Hx Pacemaker: Yes - PULMONARY Hx Respiratory Disorders: No - NEUROLOGICAL Hx Neurological Disorder: Yes Hx Syncope: Yes (due to mitral insufficiency.) - HEENT Hx HEENT Problems: No - RENAL Hx Chronic Kidney Disease: No - ENDOCRINE/METABOLIC Hx Endocrine Disorders: No - HEMATOLOGICAL/ONCOLOGICAL Hx Blood Disorders: No - INTEGUMENTARY Hx Dermatological Problems: No - MUSCULOSKELETAL/RHEUMATOLOGICAL Hx Falls: Yes Hx Herniated Disk: (slipped discs) - GASTROINTESTINAL Hx Gastritis: Yes - GENITOURINARY/GYNECOLOGICAL Hx Genitourinary Disorders: No - PSYCHIATRIC Hx Anxiety: Yes Hx Depression: Yes Hx Substance Use: No - SURGICAL HISTORY Hx Appendectomy: Yes Hx Tubal Ligation: No - ANESTHESIA Hx Anesthesia: Yes Hx Anesthesia Reactions: No Hx Malignant Hyperthermia: No Meds Allergies/Adverse Reactions: Allergies Allergy/AdvReac Type Severity Reaction Status Date / Time tetanus and diphtheria Allergy Mild SWELLING Verified 09/02/17 18:38 toxoids [tetanus & diphtheria toxoids] - Medications Medications: Current Medications Amoxicillin (Amoxil 250 Mg Cap) 500 mg PO QID [facility] Last Admin: 09/08/17 13:06 Dose: 500 mg Ascorbic Acid (Vitamin C 500 Mg Tab) 1,000 mg PO DAILY [facility] Last Admin: 09/08/17 13:06 Dose: 1,000 mg Aspirin (Aspirin) 325 mg PO DAILY [facility] Last Admin: 09/08/17 13:05 Dose: 325 mg Clonazepam (Klonopin) 1 mg PO HS [facility] Last Admin: 09/07/17 21:47 Dose: 1 mg Docusate Sodium (Colace) 100 mg PO BID [facility] Last Admin: 09/08/17 10:13 Dose: Not Given Ergocalciferol (Drisdol 50,000 Intl Units Cap) 1 cap PO Q7D [facility] Last Admin: 09/03/17 10:51 Dose: Not Given Heparin Sodium/Sodium Chloride (Heparin 84972 Units/250ml 1/2 Normal Saline) 25 ,000 units in 250 mls @ 6.042 mls/hr IV .Q24H PRN; Protocol; 9 UNITS/KG/HR PRN Reason: PROTOCOL Last Admin: 09/07/17 19:50 Dose: 9 units/kg/hr, 6.042 mls/hr Lactulose (Enulose) 20 gm PO BID PRN PRN Reason: Constipation Last Admin: 09/07/17 18:34 Dose: 20 gm Lactulose (Enulose) 20 gm PO [facility] Last Admin: 09/07/17 21:47 Dose: 20 gm Mirtazapine (Remeron) 30 mg PO [facility] Last Admin: 09/07/17 21:47 Dose: 30 mg Oxycodone/Acetaminophen (Percocet 5/325 Mg Tab) 2 tab PO Q6H PRN PRN Reason: Pain, severe (8-10) Last Admin: 09/08/17 13:06 Dose: 2 tab Pantoprazole Sodium (Protonix Ec Tab) 40 mg PO DAILY [facility] Last Admin: 09/08/17 13:05 Dose: 40 mg Rosuvastatin Calcium (Crestor) 5 mg PO [facility] Last Admin: 09/07/17 21:47 Dose: 5 mg Results - Vital Signs Recent Vital Signs: Last Vital Signs Temp 97.3 F L 09/08/17 08:28 Pulse 80 09/08/17 08:28 Resp 20 09/08/17 08:28 BP 115/69 09/08/17 08:28 Pulse Ox 98 09/08/17 08:28 - Labs Result Diagrams: 09/08/17 13:40 09/08/17 13:40 Labs: Laboratory Results - last 24 hr 09/07/17 09/08/17 09/08/17 18:07 08:32 13:40 WBC 8.1 RBC 4.03 Hgb 11.7 Hct 35.4 MCV 87.8 MCH 28.9 MCHC 33.0 RDW 13.5 Plt Count 269 MPV 8.1 Neut % (Auto) 65.9 Lymph % (Auto) 25.2 [place] % (Auto) 6.0 Eos % (Auto) 1.8 Baso % (Auto) 1.1 Neut # 5.3 Lymph # 2.0 [place] # 0.5 Eos # 0.1 Baso # 0.1 PT 14.1 H INR 1.3 APTT 171 H* D 37 H D Sodium Potassium Chloride Carbon Dioxide Anion Gap BUN Creatinine Est GFR ( Amer) Est GFR (Non-Af Amer) Random Glucose Calcium Magnesium 09/08/17 13:40 WBC RBC Hgb Hct MCV MCH MCHC RDW Plt Count MPV Neut % (Auto) Lymph % (Auto) [place] % (Auto) Eos % (Auto) Baso % (Auto) Neut # Lymph # [place] # Eos # Baso # PT INR APTT Sodium 139 Potassium 3.7 Chloride 103 Carbon Dioxide 32 H Anion Gap 7 L BUN 11 Creatinine 0.5 L Est GFR ( Amer) > 60 Est GFR (Non-Af Amer) > 60 Random Glucose 102 Calcium 8.5 L Magnesium 1.6
--- NOTE | 2017-09-08 15:10 | CARD ---
APPROVED REPORT Protocol: LEXISCAN Test Type: LEXISCAN STRESS Test Indications: PALP Target HR: 163 bpm Resting ECG: AV Sequential Pacemaker Resting Heart Rate: 81 bpm Resting Blood Pressure: 134/80mmHg submaximum (85%): 139 bpm TEST SUMMARY [id number]/80.0. INFUSIONDOSE 100:300.00.01.096/.0. [id number]/80.0. PROCEDURE Pharmacologic stress testing was performed using 0.4mg per 5ml of regadenoson given intravenously over 7-10 seconds. POST EXERCISE Reason for Termination: Completed Protocol Target HR: No Max HR: 96 bpm 69% of Maximum Predicted HR: 163 bpm Exercise duration: 00:30 min:sec, 0 Stage Exercise capacity: 1.0METs Max Blood Pressure: 135/80mmHg Chest Pain: No, none Angina index: 0 Arrhythmia: Yes, ST Change: Yes, Deviation: 0 mm INTERPRETATION Stress EKG Conclusion: No chest pain No EKG change from baseline. Nuxclear imaging to follow EXAM: Myocardial Perfusion REST/STRESS Imaging Protocol The imaging protocol used to acquire images was Rest Tc-99m/stress Tc-99m 1 day Rest Spect myocardial perfusion imaging was performed in supine position 45 minutes following the injection of 12.6 mCi of Tc-99 Myoview. Gated Stress Spect was performed 45 minutes after intravenous 30.6 mCi Tc-99 Myoview injection. The images were gated to evaluate regional wall motion and calculate ventricular ejection fraction.Images were reconstructed using backfilter projection method in short horizontal and verticle long axis. Spect slices were generated. RESTING DATA EDV92.86hnWT4.30L/min ESV38.00mlMyocardial Cslq926.00g Av. Heart Rate79.00bpm EF59.00% STRESS DATA CYJ592.95lvIJ7.50L/min ESV43.00mlMyocardial Eily665.00g EF58.00% Regional WT score at stress:0.00 Regional WM score at stress:0.00 Summed WT score at stress:28.00 Av. Heart Rate94.00bpmSummed WM score at stress:18.00 LV Perf. Quant 17 Seg. SSS7.00 17 Seg. SRS2.00 17 Seg. SDS5.00 Stress Defect Extent (% LAD)16.90Rest Defect Extent (% LAD)8.10Rev. Defect Extent (% LAD)6.90 Stress Defect Extent (% LCX)16.30Rest Defect Extent (% LCX)0.00Rev. Defect Extent (% LCX)3.80 Stress Defect Extent (% RCA)8.90Rest Defect Extent (% RCA)0.00Rev. Defect Extent (% RCA)8.90 Stress Defect Extent (% JULIANNA)13.90Rest Defect Extent (% JULIANNA)2.80Rev. Defect Extent (% JULIANNA)5.90 IMPRESSION Global LV Function: Normal Left Ventricle LV Function:Left ventricle systolic function is normal. The Ejection Fraction is 58 Metabolism/Perfusion Defects: There is a defect in the Mid-anteroseptal wall. There is a defect in the Apical anterior wall. Reversible/Irreversible: There is a small-medium partially reversible perfusion defect in the anteroapicall wall. Conclusion 1. There is a small - medium partially reversible perfusion defect in the anteroapicall wall suggestive of ischemia. 2. Globally normal left ventricular function.
[2017-09-08] MEDS ORDERED: Heparin25000 units/250ml 1/2NS 25,000 UNITS/250 ML BAG IV PRN (15:54)
[2017-09-09] MEDS: Heparin25000 units/250ml 1/2NS 25,000 UNITS/250 ML BAG IV PRN ×3 (02:11→18:28)
[2017-09-09] MEDS: Pantoprazole 40 mg EC Tab PO SCH (09:36)
[2017-09-09] MEDS: Oxycodone/Acetaminophen 5/325 mg Tab PO PRN ×3 (09:37→23:58)
--- NOTE | 2017-09-10 00:14 | CP.PCM.PN ---
Subjective - Date & Time of Evaluation Date of Evaluation: 09/08/17 Time of Evaluation: 23:45 Objective - Vital Signs/Intake and Output Vital Signs (last 24 hours): Temp Pulse Resp BP Pulse Ox 97.4 F L 89 18 108/72 94 L 09/09/17 16:01 09/09/17 19:20 09/09/17 16:01 09/09/17 16:01 09/09/17 16:01 Intake and Output: 09/09/17 09/10/17 18:59 06:59 Intake Total 579.6 680 Balance 579.6 680 - Medications Medications: Current Medications Amoxicillin (Amoxil 250 Mg Cap) 500 mg PO QID [facility] Last Admin: 09/09/17 21:43 Dose: 500 mg Ascorbic Acid (Vitamin C 500 Mg Tab) 1,000 mg PO DAILY [facility] Last Admin: 09/09/17 09:37 Dose: 1,000 mg Aspirin (Aspirin) 325 mg PO DAILY [facility] Last Admin: 09/09/17 09:37 Dose: 325 mg Clonazepam (Klonopin) 1 mg PO [facility] Last Admin: 09/09/17 21:43 Dose: 1 mg Docusate Sodium (Colace) 100 mg PO BID [facility] Last Admin: 09/09/17 17:02 Dose: 100 mg Ergocalciferol (Drisdol 50,000 Intl Units Cap) 1 cap PO Q7D [facility] Last Admin: 09/03/17 10:51 Dose: Not Given Heparin Sodium/Sodium Chloride (Heparin 65008 Units/250ml 1/2 Normal Saline) 25 ,000 units in 250 mls @ 10.07 mls/hr IV .Q24H PRN; Protocol; 15 UNITS/KG/HR PRN Reason: PROTOCOL Last Admin: 09/09/17 18:28 Dose: 15 units/kg/hr, 10.07 mls/hr Lactulose (Enulose) 20 gm PO BID PRN PRN Reason: Constipation Last Admin: 09/09/17 09:36 Dose: 20 gm Lactulose (Enulose) 20 gm PO [facility] Last Admin: 09/09/17 21:43 Dose: 20 gm Mirtazapine (Remeron) 30 mg PO [facility] Last Admin: 09/09/17 21:43 Dose: 30 mg Oxycodone/Acetaminophen (Percocet 5/325 Mg Tab) 2 tab PO Q6H PRN PRN Reason: Pain, severe (8-10) Last Admin: 09/09/17 23:58 Dose: 2 tab Pantoprazole Sodium (Protonix Ec Tab) 40 mg PO DAILY [facility] Last Admin: 09/09/17 09:36 Dose: 40 mg Rosuvastatin Calcium (Crestor) 5 mg PO HS [facility] Last Admin: 09/09/17 21:43 Dose: 5 mg - Labs Labs: 09/08/17 13:40 09/08/17 13:40 PT 11.4 SECONDS (9.7-12.2) 09/09/17 08:04 INR 1.0 09/09/17 08:04 APTT 39 SECONDS (21-34) H D 09/09/17 16:36
--- NOTE | 2017-09-10 00:16 | CP.PCM.PN ---
Subjective - Date & Time of Evaluation Date of Evaluation: 09/09/17 Time of Evaluation: 22:00 Objective - Vital Signs/Intake and Output Vital Signs (last 24 hours): Temp Pulse Resp BP Pulse Ox 97.4 F L 89 18 108/72 94 L 09/09/17 16:01 09/09/17 19:20 09/09/17 16:01 09/09/17 16:01 09/09/17 16:01 Intake and Output: 09/09/17 09/10/17 18:59 06:59 Intake Total 579.6 680 Balance 579.6 680 - Medications Medications: Current Medications Amoxicillin (Amoxil 250 Mg Cap) 500 mg PO QID [facility] Last Admin: 09/09/17 21:43 Dose: 500 mg Ascorbic Acid (Vitamin C 500 Mg Tab) 1,000 mg PO DAILY [facility] Last Admin: 09/09/17 09:37 Dose: 1,000 mg Aspirin (Aspirin) 325 mg PO DAILY [facility] Last Admin: 09/09/17 09:37 Dose: 325 mg Clonazepam (Klonopin) 1 mg PO [facility] Last Admin: 09/09/17 21:43 Dose: 1 mg Docusate Sodium (Colace) 100 mg PO BID [facility] Last Admin: 09/09/17 17:02 Dose: 100 mg Ergocalciferol (Drisdol 50,000 Intl Units Cap) 1 cap PO Q7D [facility] Last Admin: 09/03/17 10:51 Dose: Not Given Heparin Sodium/Sodium Chloride (Heparin 87946 Units/250ml 1/2 Normal Saline) 25 ,000 units in 250 mls @ 10.07 mls/hr IV .Q24H PRN; Protocol; 15 UNITS/KG/HR PRN Reason: PROTOCOL Last Admin: 09/09/17 18:28 Dose: 15 units/kg/hr, 10.07 mls/hr Lactulose (Enulose) 20 gm PO BID PRN PRN Reason: Constipation Last Admin: 09/09/17 09:36 Dose: 20 gm Lactulose (Enulose) 20 gm PO [facility] Last Admin: 09/09/17 21:43 Dose: 20 gm Mirtazapine (Remeron) 30 mg PO [facility] Last Admin: 09/09/17 21:43 Dose: 30 mg Oxycodone/Acetaminophen (Percocet 5/325 Mg Tab) 2 tab PO Q6H PRN PRN Reason: Pain, severe (8-10) Last Admin: 09/09/17 23:58 Dose: 2 tab Pantoprazole Sodium (Protonix Ec Tab) 40 mg PO DAILY [facility] Last Admin: 09/09/17 09:36 Dose: 40 mg Rosuvastatin Calcium (Crestor) 5 mg PO HS [facility] Last Admin: 09/09/17 21:43 Dose: 5 mg - Labs Labs: 09/08/17 13:40 09/08/17 13:40 PT 11.4 SECONDS (9.7-12.2) 09/09/17 08:04 INR 1.0 09/09/17 08:04 APTT 39 SECONDS (21-34) H D 09/09/17 16:36
[2017-09-10] MEDS: Oxycodone/Acetaminophen 5/325 mg Tab PO PRN ×3 (08:25→23:06)
[2017-09-10] MEDS: Pantoprazole 40 mg EC Tab PO SCH (10:33)
[2017-09-10] MEDS: Ergocalciferol 50,000 Intl Units Cap PO SCH (10:47)
[2017-09-10] MEDS ORDERED: Iodixanol 320 MG/ML 100 ML BOTTLE IV ONE (12:30)
[2017-09-10 14:00] LABS: INR 1.1
--- NOTE | 2017-09-10 17:18 | CT ---
CT chest History: Exertional dyspnea. Comparison: Chest x-ray dated 09/02/2017 Technique: Multiple contiguous axial images were performed through the chest without the use of intravenous contrast. Subsequently, sagittal and coronal reformatted images were obtained. This CT exam was performed using one or more of the following dose reduction techniques: Automated exposure control, adjustment of the mA and/or kV according to patient size, and/or use of iterative reconstruction technique. Findings: Left-sided pacemaker. No significant axillary adenopathy. Heterogeneity of the thyroid. No significant prevascular lymphadenopathy. 8 millimeter precarinal lymph node. No significant hilar adenopathy. Cardiomegaly. Left-sided pacemaker. Coronary calcifications. No pleural or pericardial effusion. Prominence of the ascending thoracic aorta measuring 3.2 centimeters. Calcification within the aorta. Aortic arch measures 3 1 centimeters. Multiple lobulated low-attenuation lesions seen throughout the liver for example in the right hepatic lobe a 2.3 centimeter lesion seen on series 4, image 66 demonstrates Hounsfield unit attenuation of 6 suggestive for a cyst. Additional low-attenuation lesion seen within the left hepatic lobe on series 4, image 77 measures 2 centimeters demonstrating Hounsfield unit attenuation of 10 suggestive for a cyst. Additional scattered low-attenuation lesions throughout the liver. Degenerative changes in the spine. Please note this study was not performed for evaluation for pulmonary embolism and if there is concern for pulmonary embolism, consider further evaluation with a CT chest pulmonary angiogram. Right lung: Basilar atelectasis. Left lung: Basilar atelectasis. Trachea thru central airways are patent. Prominent breast tissue bilaterally. Correlation with mammogram may be helpful if clinically indicated. Impression: Negative acute. Bibasilar atelectasis. Additional findings as above. Please note this study was not performed for evaluation for pulmonary embolism. If there is concern for acute pulmonary embolism, correlation with CT chest pulmonary angiogram is recommended
[2017-09-10] MEDS: Heparin25000 units/250ml 1/2NS 25,000 UNITS/250 ML BAG IV PRN (19:21)
--- NOTE | 2017-09-10 23:09 | CP.PCM.PN ---
Subjective - Date & Time of Evaluation Date of Evaluation: 09/10/17 Objective - Vital Signs/Intake and Output Vital Signs (last 24 hours): Temp Pulse Resp BP Pulse Ox 97.8 F 83 20 98/60 L 95 09/10/17 16:00 09/10/17 20:42 09/10/17 16:00 09/10/17 16:00 09/10/17 16:00 Intake and Output: 09/10/17 09/11/17 18:59 06:59 Intake Total 360 1130 Balance 360 1130 - Medications Medications: Current Medications Amoxicillin (Amoxil 250 Mg Cap) 500 mg PO QID [facility] Last Admin: 09/10/17 21:23 Dose: 500 mg Ascorbic Acid (Vitamin C 500 Mg Tab) 1,000 mg PO DAILY [facility] Last Admin: 09/10/17 10:34 Dose: 1,000 mg Aspirin (Aspirin) 325 mg PO DAILY [facility] Last Admin: 09/10/17 10:34 Dose: 325 mg Clonazepam (Klonopin) 1 mg PO HS [facility] Last Admin: 09/10/17 21:23 Dose: 1 mg Docusate Sodium (Colace) 100 mg PO BID [facility] Last Admin: 09/10/17 17:35 Dose: 100 mg Ergocalciferol (Drisdol 50,000 Intl Units Cap) 1 cap PO Q7D [facility] Last Admin: 09/10/17 10:47 Dose: Not Given Heparin Sodium/Sodium Chloride (Heparin 19585 Units/250ml 1/2 Normal Saline) 25 ,000 units in 250 mls @ 10.07 mls/hr IV .Q24H PRN; Protocol; 15 UNITS/KG/HR PRN Reason: PROTOCOL Last Admin: 09/10/17 19:21 Dose: 15 units/kg/hr, 10.07 mls/hr Lactulose (Enulose) 20 gm PO BID PRN PRN Reason: Constipation Last Admin: 09/10/17 13:29 Dose: 20 gm Lactulose (Enulose) 20 gm PO HS [facility] Last Admin: 09/10/17 21:23 Dose: 20 gm Mirtazapine (Remeron) 30 mg PO HS [facility] Last Admin: 09/10/17 21:23 Dose: 30 mg Oxycodone/Acetaminophen (Percocet 5/325 Mg Tab) 2 tab PO Q6H PRN PRN Reason: Pain, severe (8-10) Last Admin: 09/10/17 23:06 Dose: 2 tab Pantoprazole Sodium (Protonix Ec Tab) 40 mg PO DAILY [facility] Last Admin: 09/10/17 10:33 Dose: 40 mg Rosuvastatin Calcium (Crestor) 5 mg PO HS [facility] Last Admin: 09/10/17 21:23 Dose: 5 mg - Labs Labs: 09/08/17 13:40 09/08/17 13:40 PT 12.6 SECONDS (9.7-12.2) H 09/10/17 13:51 INR 1.1 09/10/17 13:51 APTT 68 SECONDS (21-34) H D 09/10/17 07:12
--- NOTE | 2017-09-10 23:30 | CARDCATH ---
PROCEDURES: 1. Coronary angiogram. 2. Aortic root angiogram. CLINICAL INDICATIONS: 1. Palpitations. 2. Dyspnea. 3. Abnormal stress test. 4. History of mechanical aortic valve. 5. History of permanent pacemaker placement. REFERRING PHYSICIANS: 1. Brent Conklin MD. 2. Referring Manager Safe is Reddy Mcclendon MD BRIEF CLINICAL HISTORY: Claudia Gordillo is a 57-year-old female with history of mechanical aortic valve placement, status post PPM, admitted to [facility] for dyspnea on minimal exertion and palpitations. Subsequent workup done by the consult supervisor vat house has revealed patient has an abnormal stress test. I was consulted by the supervisor vat house on the case to perform cardiac catheterization. PROCEDURE: After informed consent, patient was prepped and draped in the usual sterile fashion. 2% lidocaine was given in the right wrist for local anesthesia. Using micropuncture technique, 6-Romanian sheath was introduced into right radial artery. Using the JL4 and JR4 diagnostic catheters, left coronary angiogram and right coronary angiogram were performed. Using the pigtail, aortic root angiogram was performed. Due to difficulty in cannulation, right coronary was evaluated with a nonselective angiogram. FINDINGS: 1. Left main coronary artery is patent. 2. Left circumflex coronary artery is patent. 3. Left Anterior Descending coronary artery has 60% nonobstructive stenosis. Diagonal branches are patent. 4. Right coronary artery is patent. CONCLUSIONS: 1. Nonobstructive coronaries as described above. 2. Since patient has dyspnea on minimal exertion, recommend further workup including pulmonary and possible SINTIA to assess mechanical aortic valve Camilo Hall MD MTDD
[2017-09-11] MEDS: Oxycodone/Acetaminophen 5/325 mg Tab PO PRN ×3 (08:35→22:56)
[2017-09-11] MEDS: Pantoprazole 40 mg EC Tab PO SCH (10:17)
[2017-09-11 14:46] LABS: INR 1.2
--- NOTE | 2017-09-11 21:28 | PN ---
DATE: LOCATION: Room 565 A. SUBJECTIVE: Holding well, awaiting further testings for the cardiac issues tomorrow. Denies any chest discomfort. Shortness of breath at rest minimal when she walks sometimes at work. No dizziness or palpitations. Eating relatively well, presently "getting bored here, looking forward to go home as soon as possible." No nausea, vomiting, no diarrhea. PHYSICAL EXAMINATION: GENERAL: Alert, oriented, in no distress. Noted very pleasant and cooperative. VITAL SIGNS: Blood pressure normal, temperature is normal. Heart rate is about 80 to 84 or so, blood pressure 100/64, O2 saturation and respiratory rates are unremarkable. CARDIOPULMONARY: The cardiopulmonary status remains well compensated, jugular vein is not distended, carotids normal. Heart sounds normal in intensity and regular. Clicks of the artificial heart valves are well heard. LUNGS: Auscultation clear. ABDOMEN: Soft. No organomegaly. CENTRAL NERVOUS SYSTEM: No focal deficit. LABORATORY DATA: Complementary data today, INR around 1.2 while she is on heparin and warfarin is being resumed. ASSESSMENT: I had a long conversation with Dr. Hall today and alerted me about the possibilities in this lady concerning her troponins, etc. Tomorrow, she is going to have a transesophageal echocardiography by Dr. Bullock. If that is also normal, then the decision will be made to send her home or to perhaps as he mentioned depending upon the situation, consider the fractional flow reserve to see if that is more lesioned and the LAD is creating any problems. At this point in time, she is stable and doing well. PLAN: Depending upon the SINTIA tomorrow which it looks like it is going to be normal, the surface echocardiogram shows the aortic valve functioning quite well and normal. Overall, left ventricular function is normal, slight hypokinesis in the distal septal area, perhaps some paradoxical motion due to the pacemaker, etc, but nothing had shaken. Reddy Mcclendon MD
[2017-09-11] MEDS: Heparin25000 units/250ml 1/2NS 25,000 UNITS/250 ML BAG IV PRN (22:56)
--- NOTE | 2017-09-11 23:27 | CP.PCM.PN ---
Subjective - Date & Time of Evaluation Date of Evaluation: 09/11/17 Time of Evaluation: 22:05 Objective - Vital Signs/Intake and Output Vital Signs (last 24 hours): Temp Pulse Resp BP Pulse Ox 97.5 F L 88 20 95/65 L 97 09/11/17 15:52 09/11/17 23:23 09/11/17 15:52 09/11/17 15:52 09/11/17 15:52 Intake and Output: 09/11/17 09/12/17 18:59 06:59 Intake Total 890 680 Balance 890 680 - Medications Medications: Current Medications Amoxicillin (Amoxil 500 Mg Cap) 500 mg PO QID [facility] Last Admin: 09/11/17 21:24 Dose: 500 mg Ascorbic Acid (Vitamin C 500 Mg Tab) 1,000 mg PO DAILY [facility] Last Admin: 09/11/17 10:17 Dose: 1,000 mg Aspirin (Aspirin) 325 mg PO DAILY [facility] Last Admin: 09/11/17 10:17 Dose: 325 mg Clonazepam (Klonopin) 1 mg PO HS [facility] Last Admin: 09/11/17 21:24 Dose: 1 mg Docusate Sodium (Colace) 100 mg PO BID [facility] Last Admin: 09/11/17 17:08 Dose: 100 mg Ergocalciferol (Drisdol 50,000 Intl Units Cap) 1 cap PO Q7D [facility] Last Admin: 09/10/17 10:47 Dose: Not Given Heparin Sodium/Sodium Chloride (Heparin 42764 Units/250ml 1/2 Normal Saline) 25 ,000 units in 250 mls @ 10.07 mls/hr IV .Q24H PRN; Protocol; 15 UNITS/KG/HR PRN Reason: PROTOCOL Last Admin: 09/11/17 22:56 Dose: 15 units/kg/hr, 10.07 mls/hr Lactulose (Enulose) 20 gm PO BID PRN PRN Reason: Constipation Last Admin: 09/10/17 13:29 Dose: 20 gm Lactulose (Enulose) 20 gm PO [facility] Last Admin: 09/11/17 21:23 Dose: 20 gm Mirtazapine (Remeron) 30 mg PO HS [facility] Last Admin: 09/11/17 21:24 Dose: 30 mg Oxycodone/Acetaminophen (Percocet 5/325 Mg Tab) 2 tab PO Q6H PRN PRN Reason: Pain, severe (8-10) Last Admin: 09/11/17 22:56 Dose: 2 tab Pantoprazole Sodium (Protonix Ec Tab) 40 mg PO DAILY [facility] Last Admin: 09/11/17 10:17 Dose: 40 mg Rosuvastatin Calcium (Crestor) 5 mg PO HS [facility] Last Admin: 09/11/17 21:24 Dose: 5 mg - Labs Labs: 09/08/17 13:40 09/08/17 13:40 PT 13.5 SECONDS (9.7-12.2) H 09/11/17 14:29 INR 1.2 09/11/17 14:29 APTT 66 SECONDS (21-34) H 09/11/17 07:59 Assessment and Plan (1) Syncope Status: Acute (2) S/P AVR (aortic valve replacement) Status: Chronic
[2017-09-12] MEDS: Oxycodone/Acetaminophen 5/325 mg Tab PO PRN ×3 (08:40→23:27)
[2017-09-12 08:55] LABS: BASO # 0.1 K/uL (0.0-0.2); BASO % 1.2 % (0.0-2.0); EOS # 0.2 K/uL (0.0-0.7); EOS % 3.1 % (0.0-4.0); HEMATOCRIT 35.5 % (34.0-47.0); LYMPH # 1.6 K/uL (1.0-4.3); LYMPH % 32.3 % (20.0-40.0); MEAN CORPUSCULAR HEMOGLOBIN 30.2 pg (27.0-31.0); MEAN CORPUSCULAR HGB CONC 34.3 g/dL (33.0-37.0); MEAN PLATELET VOLUME 8.3 fL (7.2-11.7); MONO # 0.3 K/uL (0.0-0.8); MONO % 6.5 % (0.0-10.0); NRBC % 0.1 % (0.0-2.0); RED CELL DISTRIBUTION WIDTH 13.9 % (11.5-14.5); WHITE BLOOD COUNT 4.9 K/uL (4.8-10.8)
[2017-09-12 09:14] LABS: ALB/GLOB RATIO 0.9 (1.0-2.1); ALKALINE PHOSPHATASE 95 U/L (38-126); ALT/SGPT 80 U/L (9-52); AST/SGOT 71 U/L (14-36); BILIRUBIN,TOTAL 0.3 mg/dL (0.2-1.3); BLOOD UREA NITROGEN 15 mg/dL (7-17); CALCIUM 9.1 mg/dl (8.6-10.4); CARBON DIOXIDE 30 mmol/L (22-30); CHLORIDE 99 mmol/L (98-107); GFR AFRICAN-AMERICAN > 60; GLUCOSE,RANDOM 91 mg/dL (65-105); POTASSIUM 4.1 mmol/L (3.6-5.2); SODIUM 137 mmol/L (132-148); TOTAL PROTEIN 8.7 g/dL (6.3-8.3)
[2017-09-12] MEDS: Pantoprazole 40 mg EC Tab PO SCH (09:50)
[2017-09-12] MEDS ORDERED: Propofol 10 mg/ml Inj (20 ML) ONE ×2 (14:07→14:35)
[2017-09-12] MEDS ORDERED: Lidocaine 4% (Laryng-O-Jet) Kit MM ONE ×2 (14:08)
[2017-09-12] MEDS ORDERED: Lidocaine 2% Inj (20ml) ONE (14:09)
[2017-09-12] MEDS ORDERED: ePHEDrine 50 mg/ml Inj ONE (14:09)
[2017-09-12] MEDS ORDERED: Etomidate 20 mg/10ml Inj IV ONE (14:12)
[2017-09-12 16:57] LABS: INR 1.5
--- NOTE | 2017-09-12 17:38 | CARD ---
APPROVED REPORT EXAM: Two-dimensional and M-mode echocardiogram with Doppler and color Doppler. INDICATION CVA/TIA Syncope Aortic valve replacement LEFT VENTRICLE The left ventricle is normal size. There is normal left ventricular wall thickness. The left ventricular function is overall normal. The left ventricular ejection fraction is within the normal range. aBOUT 55% paradoxical inferior wall motion is noted. The left ventricular diastolic function could not be assessed. No left ventricle thrombus noted on this study. There is no ventricular septal defect visualized. There is no left ventricular aneurysm. There is no mass noted in the left ventricle. RIGHT VENTRICLE The right ventricle is normal size. There is normal right ventricular wall thickness. The right ventricular systolic function is normal. A ppm wire was noted ATRIA The left atrium size is normal. No atrial thrombus The right atrium size is normal. A ppm wire was noted, no thrombus A patent foramen ovale was noted with left to right flow, with color Doppler. AORTIC VALVE A bi-leaflet mechanical aortic valve was noted. The occluders opened well. No aortic regurgitation is present. A tiny supterior para-valvualr leak was noted. The peak gradient was 39 mm Hg, estimated valve area was .84 cm2. There is no aortic valvular vegetation. MITRAL VALVE There is mild prolapse of the posterior lealfet. There is no mitral valve stenosis. There is mild mitral valve regurgitation noted. TRICUSPID VALVE The tricuspid valve is normal in structure and function. There is mild tricuspid valve regurgitation noted. There is no tricuspid valve prolapse or vegetation. There is no tricuspid valve stenosis. PULMONIC VALVE The pulmonary valve is normal in structure and function. There is no pulmonic valvular regurgitation. There is no pulmonic valvular stenosis. GREAT VESSELS The aortic root is normal in size. The ascending aorta is normal in size. Ther eis no significant aortic plaque. The pulmonary artery is normal. PERICARDIAL EFFUSION The pericardium appears normal. There is no pleural effusion. <Conclusion> Overall normal LV systolic function with paradoxical inferolateral motion. Mechanical aoritc valve: the occludiers open well, however the calculated valve area of .84 cm2 suggests mis-match. A tiny superior para-valvyular leak is noted. Patent foramen ovale with left to right flow Mild mitral regurgitation with mild posterior leaflet prolapse.
--- NOTE | 2017-09-12 18:35 | CARD ---
APPROVED REPORT EKG Measurement Heart [id number] <Conclusion> Atrial-sensed ventricular-paced rhythm Abnormal ECG
--- NOTE | 2017-09-12 23:38 | CP.PCM.PN ---
Subjective - Date & Time of Evaluation Date of Evaluation: 09/12/17 Time of Evaluation: 19:15 - Subjective Subjective: Seen and examined at the bed side. S/P SINTIA today, and short diastolic phase. Recommended EP consult for adjusting the Pacemaker to synchronize so that programmed to get diastolic phase. Denies chest pain or sob. INR 1.5 on Coumadin 8mg today. Continue Heparin Infusion. Electrophyisologist consulted. Objective - Vital Signs/Intake and Output Vital Signs (last 24 hours): Temp Pulse Resp BP Pulse Ox 98.0 F 86 20 105/71 97 09/12/17 15:30 09/12/17 16:00 09/12/17 15:30 09/12/17 15:30 09/12/17 15:30 Intake and Output: 09/12/17 09/13/17 18:59 06:59 Intake Total 80 360 Balance 80 360 - Medications Medications: Current Medications Amoxicillin (Amoxil 500 Mg Cap) 500 mg PO QID [facility] Last Admin: 09/12/17 21:28 Dose: 500 mg Ascorbic Acid (Vitamin C 500 Mg Tab) 1,000 mg PO DAILY [facility] Last Admin: 09/12/17 09:51 Dose: 1,000 mg Aspirin (Aspirin) 325 mg PO DAILY [facility] Last Admin: 09/12/17 09:50 Dose: 325 mg Clonazepam (Klonopin) 1 mg PO HS [facility] Last Admin: 09/12/17 21:28 Dose: 1 mg Docusate Sodium (Colace) 100 mg PO BID [facility] Last Admin: 09/12/17 18:08 Dose: 100 mg Ergocalciferol (Drisdol 50,000 Intl Units Cap) 1 cap PO Q7D [facility] Last Admin: 09/10/17 10:47 Dose: Not Given Lactulose (Enulose) 20 gm PO BID PRN PRN Reason: Constipation Last Admin: 09/10/17 13:29 Dose: 20 gm Lactulose (Enulose) 20 gm PO HS [facility] Last Admin: 09/12/17 21:28 Dose: 20 gm Mirtazapine (Remeron) 30 mg PO HS [facility] Last Admin: 09/12/17 21:28 Dose: 30 mg Oxycodone/Acetaminophen (Percocet 5/325 Mg Tab) 2 tab PO Q6H PRN PRN Reason: Pain, severe (8-10) Last Admin: 09/12/17 17:15 Dose: 2 tab Pantoprazole Sodium (Protonix Ec Tab) 40 mg PO DAILY [facility] Last Admin: 09/12/17 09:50 Dose: 40 mg Rosuvastatin Calcium (Crestor) 5 mg PO HS [facility] Last Admin: 09/12/17 21:28 Dose: 5 mg - Labs Labs: 09/12/17 08:35 09/12/17 08:35 PT 17.5 SECONDS (9.7-12.2) H 09/12/17 16:44 INR 1.5 09/12/17 16:44 APTT 80 SECONDS (21-34) H D 09/12/17 08:35 - Constitutional Appears: Well, No Acute Distress - Head Exam Head Exam: ATRAUMATIC, NORMAL INSPECTION, NORMOCEPHALIC - Eye Exam Eye Exam: EOMI, Normal appearance, PERRL Pupil Exam: NORMAL ACCOMODATION, PERRL - ENT Exam ENT Exam: Mucous Membranes Moist, Normal Exam - Neck Exam Neck Exam: Full ROM, Normal Inspection. absent: Lymphadenopathy - Respiratory Exam Respiratory Exam: Clear to Ausculation Bilateral, NORMAL BREATHING PATTERN - Cardiovascular Exam Cardiovascular Exam: REGULAR RHYTHM, +S1, +S2, Murmur (click) - GI/Abdominal Exam GI & Abdominal Exam: Firm, Soft, Normal Bowel Sounds. absent: Tenderness - Extremities Exam Extremities Exam: Full ROM, Normal Capillary Refill, Normal Inspection. absent : Joint Swelling, Pedal Edema - Back Exam Back Exam: Full ROM, NORMAL INSPECTION. absent: CVA tenderness (L), CVA tenderness (R) - Neurological Exam Neurological Exam: Alert, Awake, CN II-XII Intact, Normal Gait, Oriented x3 - Psychiatric Exam Psychiatric exam: Normal Affect, Normal Mood - Skin Skin Exam: Dry, Intact, Normal Color, Warm Assessment and Plan (1) Syncope Assessment & Plan: ?NSTEMI VS Cardiac Arrhythmia Vs Pacemaker Syndrome Aortic Mechanical VAlve Cardiac Cath-, non-obstructing CAD, PACEMAKER Interrogation Ergonomics Technician (EP) Consulted Continue Heparin Infusion till INR 2-3 Coumadin 5mg PO daily Status: Acute (2) S/P AVR (aortic valve replacement) Assessment & Plan: Mechanical VAlve Continue Heparin and Coumadin PT/INR/PTT dally Status: Chronic
[2017-09-13] MEDS: Heparin25000 units/250ml 1/2NS 25,000 UNITS/250 ML BAG IV PRN (01:23)
[2017-09-13] MEDS: Oxycodone/Acetaminophen 5/325 mg Tab PO PRN ×3 (08:19→23:58)
[2017-09-13 08:30] LABS: INR 1.5
[2017-09-13] MEDS: Pantoprazole 40 mg EC Tab PO SCH (09:55)
[2017-09-13 16:55] VITALS: RESP 20
--- NOTE | 2017-09-13 17:06 | CP.PCM.CON ---
History of Present Illness - History of Present Illness History of Present Illness: Chart imaging reviewed Admitted with a syncopal episode, while taking a shower "almost passed out' sat and slept for some time and the symptom recurred while recumbent associated with blurring of vision tinnitus; denied seizures vertigo Cardiac cath reportedly non obstructive SINTIA with PFO and functioning mechanical aortic prosthesis Past Patient History - Infectious Disease Hx of Infectious Diseases: None - Past Medical History & Family History Past Medical History?: Yes Past Family History: Reviewed and not pertinent - Past Social History Smoking Status: Former Smoker Alcohol: None Drugs: Denies - CARDIAC Hx Cardia Arrhythmia: Yes Hx Hypercholesterolemia: Yes Hx Pacemaker: Yes - PULMONARY Hx Respiratory Disorders: No - NEUROLOGICAL Hx Neurological Disorder: Yes Hx Syncope: Yes (due to mitral insufficiency.) - HEENT Hx HEENT Problems: No - RENAL Hx Chronic Kidney Disease: No - ENDOCRINE/METABOLIC Hx Endocrine Disorders: No - HEMATOLOGICAL/ONCOLOGICAL Hx Blood Disorders: No - INTEGUMENTARY Hx Dermatological Problems: No - MUSCULOSKELETAL/RHEUMATOLOGICAL Hx Falls: Yes Hx Herniated Disk: (slipped discs) - GASTROINTESTINAL Hx Gastritis: Yes - GENITOURINARY/GYNECOLOGICAL Hx Genitourinary Disorders: No - PSYCHIATRIC Hx Anxiety: Yes Hx Depression: Yes Hx Substance Use: No - SURGICAL HISTORY Hx Appendectomy: Yes Hx Cardiac Catheterization: Yes Hx Tubal Ligation: No Hx Valve Replacement: Yes (Aortic Mechanical) - ANESTHESIA Hx Anesthesia: Yes Hx Anesthesia Reactions: No Hx Malignant Hyperthermia: No Meds Allergies/Adverse Reactions: Allergies Allergy/AdvReac Type Severity Reaction Status Date / Time tetanus and diphtheria Allergy Mild SWELLING Verified 09/02/17 18:38 toxoids [tetanus & diphtheria toxoids] - Medications Medications: Current Medications Amoxicillin (Amoxil 500 Mg Cap) 500 mg PO QID [facility] Last Admin: 09/13/17 13:04 Dose: 500 mg Ascorbic Acid (Vitamin C 500 Mg Tab) 1,000 mg PO DAILY [facility] Last Admin: 09/13/17 09:55 Dose: 1,000 mg Aspirin (Aspirin) 325 mg PO DAILY [facility] Last Admin: 09/13/17 09:55 Dose: 325 mg Clonazepam (Klonopin) 1 mg PO HS [facility] Last Admin: 09/12/17 21:28 Dose: 1 mg Docusate Sodium (Colace) 100 mg PO BID [facility] Last Admin: 09/13/17 09:55 Dose: 100 mg Ergocalciferol (Drisdol 50,000 Intl Units Cap) 1 cap PO Q7D [facility] Last Admin: 09/10/17 10:47 Dose: Not Given Heparin Sodium/Sodium Chloride (Heparin 85270 Units/250ml 1/2 Normal Saline) 25 ,000 units in 250 mls @ 0 mls/hr IV .Q0M PRN; Protocol; Per Protocol PRN Reason: PROTOCOL Last Admin: 09/13/17 01:23 Dose: 10.1 mls/hr Lactulose (Enulose) 20 gm PO BID PRN PRN Reason: Constipation Last Admin: 09/13/17 13:07 Dose: 20 gm Lactulose (Enulose) 20 gm PO HS [facility] Last Admin: 09/12/17 21:28 Dose: 20 gm Mirtazapine (Remeron) 30 mg PO HS [facility] Last Admin: 09/12/17 21:28 Dose: 30 mg Oxycodone/Acetaminophen (Percocet 5/325 Mg Tab) 2 tab PO Q6H PRN PRN Reason: Pain, severe (8-10) Last Admin: 09/13/17 08:19 Dose: 2 tab Pantoprazole Sodium (Protonix Ec Tab) 40 mg PO DAILY [facility] Last Admin: 09/13/17 09:55 Dose: 40 mg Rosuvastatin Calcium (Crestor) 5 mg PO HS [facility] Last Admin: 09/12/17 21:28 Dose: 5 mg Warfarin Sodium (Coumadin) 10 mg PO 1800 [facility] Stop: 09/13/17 18:01 Physical Exam - Additional Findings Additional findings: No nysagmus No evidence of head trauma Normal venous pressures basal systolic murmur mechanical second heart sound No edema Results - Vital Signs Recent Vital Signs: Last Vital Signs Temp 97.3 F L 09/13/17 14:00 Pulse 100 H 09/13/17 14:00 Resp 20 09/13/17 14:00 BP 100/67 09/13/17 14:00 Pulse Ox 97 09/13/17 14:00 - Labs Result Diagrams: 09/12/17 08:35 09/12/17 08:35 Labs: Laboratory Results - last 24 hr 09/13/17 08:12 PT 17.2 H INR 1.5 APTT 68 H D Assessment & Plan - Assessment and Plan (Free Text) Assessment: transient loss of consciounsess Mechanism is not obvious; likely orthostatic/vagal a peripheral phenomenon; however the recurrence when recumbent is a concern raising possibilities of an arrhythmia EKG suggest normal AV sequential pacing However unusual pacing vector suggestive of pacing from the LV base? malposition of the Pacing lead ? via the PFO DW patient at length issues Suggest Pacemaker interrogation st justin rep
[2017-09-13 17:42] LABS: INR 1.6
--- NOTE | 2017-09-13 21:30 | CP.PCM.PN ---
Subjective - Date & Time of Evaluation Date of Evaluation: 09/13/17 Time of Evaluation: 10:30 - Subjective Subjective: Seen and examined at the bed side. Denies chest pain, palpitation or Lightheadedness. Objective - Vital Signs/Intake and Output Vital Signs (last 24 hours): Temp Pulse Resp BP Pulse Ox 97.3 F L 100 H 20 100/67 97 09/13/17 14:00 09/13/17 14:00 09/13/17 14:00 09/13/17 14:00 09/13/17 14:00 Intake and Output: 09/13/17 09/14/17 18:59 06:59 Intake Total 910 Balance 910 - Medications Medications: Current Medications Amoxicillin (Amoxil 500 Mg Cap) 500 mg PO QID [facility] Last Admin: 09/13/17 17:03 Dose: 500 mg Ascorbic Acid (Vitamin C 500 Mg Tab) 1,000 mg PO DAILY [facility] Last Admin: 09/13/17 09:55 Dose: 1,000 mg Aspirin (Aspirin) 325 mg PO DAILY [facility] Last Admin: 09/13/17 09:55 Dose: 325 mg Clonazepam (Klonopin) 1 mg PO HS [facility] Last Admin: 09/12/17 21:28 Dose: 1 mg Docusate Sodium (Colace) 100 mg PO BID [facility] Last Admin: 09/13/17 17:04 Dose: 100 mg Ergocalciferol (Drisdol 50,000 Intl Units Cap) 1 cap PO Q7D [facility] Last Admin: 09/10/17 10:47 Dose: Not Given Heparin Sodium/Sodium Chloride (Heparin 42687 Units/250ml 1/2 Normal Saline) 25 ,000 units in 250 mls @ 0 mls/hr IV .Q0M PRN; Protocol; Per Protocol PRN Reason: PROTOCOL Last Admin: 09/13/17 01:23 Dose: 10.1 mls/hr Lactulose (Enulose) 20 gm PO BID PRN PRN Reason: Constipation Last Admin: 09/13/17 13:07 Dose: 20 gm Lactulose (Enulose) 20 gm PO HS [facility] Last Admin: 09/12/17 21:28 Dose: 20 gm Metoprolol Succinate (Toprol Xl) 12.5 mg PO DAILY [facility] Oxycodone/Acetaminophen (Percocet 5/325 Mg Tab) 2 tab PO Q6H PRN PRN Reason: Pain, severe (8-10) Last Admin: 09/13/17 17:04 Dose: 2 tab Pantoprazole Sodium (Protonix Ec Tab) 40 mg PO DAILY [facility] Last Admin: 09/13/17 09:55 Dose: 40 mg Rosuvastatin Calcium (Crestor) 5 mg PO HS [facility] Last Admin: 09/12/17 21:28 Dose: 5 mg - Labs Labs: 09/12/17 08:35 09/12/17 08:35 PT 18.7 SECONDS (9.7-12.2) H 09/13/17 17:26 INR 1.6 09/13/17 17:26 APTT 68 SECONDS (21-34) H D 09/13/17 08:12 - Constitutional Appears: Well, No Acute Distress - Head Exam Head Exam: ATRAUMATIC, NORMAL INSPECTION, NORMOCEPHALIC - Eye Exam Eye Exam: EOMI, Normal appearance, PERRL Pupil Exam: NORMAL ACCOMODATION, PERRL - ENT Exam ENT Exam: Mucous Membranes Moist, Normal Exam - Neck Exam Neck Exam: Full ROM, Normal Inspection. absent: Lymphadenopathy - Respiratory Exam Respiratory Exam: Clear to Ausculation Bilateral, NORMAL BREATHING PATTERN - Cardiovascular Exam Cardiovascular Exam: REGULAR RHYTHM, +S1, +S2, Murmur Additional comments: +Click Midline Healed surgical scar. Left chest Pacemker. - GI/Abdominal Exam GI & Abdominal Exam: Soft, Normal Bowel Sounds. absent: Tenderness - Extremities Exam Extremities Exam: Full ROM, Normal Capillary Refill, Normal Inspection. absent : Joint Swelling, Pedal Edema - Back Exam Back Exam: NORMAL INSPECTION - Neurological Exam Neurological Exam: Alert, Awake, CN II-XII Intact, Normal Gait, Oriented x3 - Psychiatric Exam Psychiatric exam: Normal Affect, Normal Mood - Skin Skin Exam: Dry, Intact, Normal Color, Warm Assessment and Plan (1) Syncope Assessment & Plan: ?NSTEMI VS Cardiac Arrhythmia Vs Pacemaker Syndrome Aortic Mechanical Valve Cardiac Cath-, non-obstructing CAD, Possible PACEMAKER Interrogation- Showed Polymorphic VT I have discussed with (EP) and he recommended: -Increase PACEMAKER rate to 80 BPM -Monitor Electrolytes(K, Ca & Mag levels) -D/C Remeron as possible Etiology for QTc prolongation. -Also recommended to start BB. -Get old EKG, preferably before AVR. -Also Get EKG from family memeber to R/O Continue Heparin Infusion untill INR 2-3 Coumadin 5mg PO daily Status: Acute (2) S/P AVR (aortic valve replacement) Assessment & Plan: Mechanical Valve Continue Heparin and Coumadin PT/INR/PTT dally Status: Acute (2) S/P AVR (aortic valve replacement) Status: Chronic
[2017-09-14] MEDS: Heparin25000 units/250ml 1/2NS 25,000 UNITS/250 ML BAG IV PRN (05:02)
[2017-09-14 07:24] LABS: BASO # 0.1 K/uL (0.0-0.2); BASO % 1.2 % (0.0-2.0); EOS # 0.1 K/uL (0.0-0.7); EOS % 3.4 % (0.0-4.0); HEMATOCRIT 34.3 % (34.0-47.0); LYMPH # 1.7 K/uL (1.0-4.3); LYMPH % 38.5 % (20.0-40.0); MEAN CELL VOLUME 88.5 fL (81.0-99.0); MEAN CORPUSCULAR HGB CONC 33.9 g/dL (33.0-37.0); MEAN PLATELET VOLUME 8.3 fL (7.2-11.7); MONO # 0.4 K/uL (0.0-0.8); MONO % 8.2 % (0.0-10.0); NRBC % 0.1 % (0.0-2.0); RED CELL DISTRIBUTION WIDTH 14.2 % (11.5-14.5); WHITE BLOOD COUNT 4.4 K/uL (4.8-10.8)
[2017-09-14 07:38] VITALS: BP 104/68; PULSE 79; TEMP 97.7; O2SAT 97
[2017-09-14 07:46] LABS: BLOOD UREA NITROGEN 13 mg/dL (7-17); CALCIUM 8.9 mg/dl (8.6-10.4); CARBON DIOXIDE 28 mmol/L (22-30); CHLORIDE 101 mmol/L (98-107); GFR AFRICAN-AMERICAN > 60; GLUCOSE,RANDOM 98 mg/dL (65-105); MAGNESIUM 1.7 mg/dL (1.6-2.3); POTASSIUM 4.1 mmol/L (3.6-5.2); SODIUM 136 mmol/L (132-148)
[2017-09-14] MEDS: Oxycodone/Acetaminophen 5/325 mg Tab PO PRN (08:17)
[2017-09-14 08:33] LABS: THYROID STIMULATING HORMONE 1.81 mIU/L (0.46-4.68)
--- NOTE | 2017-09-14 09:02 | CP.PCM.PN ---
Subjective - Date & Time of Evaluation Date of Evaluation: 09/14/17 Time of Evaluation: 08:59 - Subjective Subjective: PER TAMIKA NAVA HAS GIVEN ORDERS TO D/C THE PT. TO F/U WITH HIM IN THE OFFICE ON 09/20/[address] AT [address] DENG AND DR. SALAMANCA IN THE OFFICE WITHIN 1 WEEK. REVIEWED LABS, VS, AND LATEST PROGRESS NOTES; NOTED RECS MADE BETWEEN DR. NAVA AND DR. SALAMANCA. REMERON TO BE HELD 2/[address] SALAMANCA RECS. TO CONTINUE USUAL DOSE OF COUMADIN PER DR. NAVA. FURTHER CONCERNS OR QUESTIONS TO BE ADDRESSED BY DR. NAVA. Objective - Vital Signs/Intake and Output Vital Signs (last 24 hours): Temp Pulse Resp BP Pulse Ox 97.7 F 79 20 104/68 97 09/14/17 07:37 09/14/17 07:37 09/14/17 07:37 09/14/17 07:37 09/14/17 07:37 Intake and Output: 09/14/17 09/14/17 06:59 18:59 Intake Total 1030 Balance 1030 - Medications Medications: Current Medications Amoxicillin (Amoxil 500 Mg Cap) 500 mg PO QID [facility] Last Admin: 09/13/17 21:27 Dose: 500 mg Ascorbic Acid (Vitamin C 500 Mg Tab) 1,000 mg PO DAILY [facility] Last Admin: 09/13/17 09:55 Dose: 1,000 mg Aspirin (Aspirin) 325 mg PO DAILY [facility] Last Admin: 09/13/17 09:55 Dose: 325 mg Clonazepam (Klonopin) 1 mg PO HS [facility] Last Admin: 09/13/17 21:26 Dose: 1 mg Docusate Sodium (Colace) 100 mg PO BID [facility] Last Admin: 09/13/17 17:04 Dose: 100 mg Ergocalciferol (Drisdol 50,000 Intl Units Cap) 1 cap PO Q7D [facility] Last Admin: 09/10/17 10:47 Dose: Not Given Heparin Sodium/Sodium Chloride (Heparin 80838 Units/250ml 1/2 Normal Saline) 25 ,000 units in 250 mls @ 0 mls/hr IV .Q0M PRN; Protocol; Per Protocol PRN Reason: PROTOCOL Last Admin: 09/14/17 05:02 Dose: 10.1 mls/hr Lactulose (Enulose) 20 gm PO BID PRN PRN Reason: Constipation Last Admin: 09/13/17 13:07 Dose: 20 gm Lactulose (Enulose) 20 gm PO HS [facility] Last Admin: 09/13/17 21:27 Dose: 20 gm Metoprolol Succinate (Toprol Xl) 12.5 mg PO DAILY [facility] Oxycodone/Acetaminophen (Percocet 5/325 Mg Tab) 2 tab PO Q6H PRN PRN Reason: Pain, severe (8-10) Last Admin: 09/14/17 08:17 Dose: 2 tab Pantoprazole Sodium (Protonix Ec Tab) 40 mg PO DAILY [facility] Last Admin: 09/13/17 09:55 Dose: 40 mg Rosuvastatin Calcium (Crestor) 5 mg PO HS [facility] Last Admin: 09/13/17 21:26 Dose: 5 mg - Labs Labs: 09/14/17 07:17 09/14/17 07:17 PT 23.4 SECONDS (9.7-12.2) H 09/14/17 07:17 INR 2.0 09/14/17 07:17 APTT 91 SECONDS (21-34) H D 09/14/17 07:17
[2017-09-14] MEDS ORDERED: Metoprolol Succinate 12.5 mg XL PO SCH (10:00)
--- NOTE | 2017-09-14 23:59 | CP.PCM.DIS ---
Provider - Provider Date of Admission: 09/02/17 21:02 Attending physician: Brent Conklin MD Time Spent in preparation of Discharge (in minutes): 25 Diagnosis - Discharge Diagnosis (1) Syncope Status: Acute (2) S/P AVR (aortic valve replacement) Status: Chronic Priority: Medium Hospital Course - Lab Results Lab Results: Most Recent Lab Values WBC 4.4 K/uL (4.8-10.8) L 09/14/17 07:17 RBC 3.88 Mil/uL (3.80-5.20) 09/14/17 07:17 Hgb 11.7 g/dL (11.0-16.0) 09/14/17 07:17 Hct 34.3 % (34.0-47.0) 09/14/17 07:17 MCV 88.5 fL (81.0-99.0) 09/14/17 07:17 MCH 30.0 pg (27.0-31.0) 09/14/17 07:17 MCHC 33.9 g/dL (33.0-37.0) 09/14/17 07:17 RDW 14.2 % (11.5-14.5) 09/14/17 07:17 Plt Count 276 K/uL (130-400) 09/14/17 07:17 MPV 8.3 fL (7.2-11.7) 09/14/17 07:17 Neut % (Auto) 48.7 % (50.0-75.0) L 09/14/17 07:17 Lymph % (Auto) 38.5 % (20.0-40.0) 09/14/17 07:17 [place] % (Auto) 8.2 % (0.0-10.0) 09/14/17 07:17 Eos % (Auto) 3.4 % (0.0-4.0) 09/14/17 07:17 Baso % (Auto) 1.2 % (0.0-2.0) 09/14/17 07:17 Neut # 2.2 K/uL (1.8-7.0) 09/14/17 07:17 Lymph # 1.7 K/uL (1.0-4.3) 09/14/17 07:17 [place] # 0.4 K/uL (0.0-0.8) 09/14/17 07:17 Eos # 0.1 K/uL (0.0-0.7) 09/14/17 07:17 Baso # 0.1 K/uL (0.0-0.2) 09/14/17 07:17 PT 23.4 SECONDS (9.7-12.2) H 09/14/17 07:17 INR 2.0 09/14/17 07:17 APTT 91 SECONDS (21-34) H D 09/14/17 07:17 Sodium 136 mmol/L (132-148) 09/14/17 07:17 Potassium 4.1 mmol/L (3.6-5.2) 09/14/17 07:17 Chloride 101 mmol/L (98-107) 09/14/17 07:17 Carbon Dioxide 28 mmol/L (22-30) 09/14/17 07:17 Anion Gap 11 (10-20) 09/14/17 07:17 BUN 13 mg/dL (7-17) 09/14/17 07:17 Creatinine 0.6 mg/dL (0.7-1.2) L 09/14/17 07:17 Est GFR ( Amer) > 60 09/14/17 07:17 Est GFR (Non-Af Amer) > 60 09/14/17 07:17 Random Glucose 98 mg/dL (65-105) 09/14/17 07:17 Calcium 8.9 mg/dl (8.6-10.4) 09/14/17 07:17 Magnesium 1.7 mg/dL (1.6-2.3) 09/14/17 07:17 Total Bilirubin 0.3 mg/dL (0.2-1.3) 09/12/17 08:35 AST 71 U/L (14-36) H D 09/12/17 08:35 ALT 80 U/L (9-52) H D 09/12/17 08:35 Alkaline Phosphatase 95 U/L (38-126) 09/12/17 08:35 Total Creatine Kinase 97 U/L (30-135) 09/03/17 11:39 CK-MB (Mass) 1.88 ng/mL (0.0-3.38) 09/03/17 11:39 Troponin I 0.2310 ng/mL (0.00-0.120) H* 09/03/17 11:39 NT-Pro-B Natriuret Pep 1990 pg/mL (0-900) H 09/02/17 20:24 Total Protein 8.7 g/dL (6.3-8.3) H 09/12/17 08:35 Albumin 4.2 g/dL (3.5-5.0) 09/12/17 08:35 Globulin 4.5 gm/dL (2.2-3.9) H 09/12/17 08:35 Albumin/Globulin Ratio 0.9 (1.0-2.1) L 09/12/17 08:35 Triglycerides 98 mg/dL (0-149) 09/03/17 07:57 Cholesterol 208 mg/dL (0-199) H 09/03/17 07:57 LDL Cholesterol Direct 141 mg/dL (0-129) H 09/03/17 07:57 HDL Cholesterol 43 mg/dL (30-70) 09/03/17 07:57 TSH 3rd Generation 1.81 mIU/L (0.46-4.68) 09/14/17 07:17 Urine Color Straw (YELLOW) 09/02/17 20:32 Urine Clarity Clear (Clear) 09/02/17 20:32 Urine pH 6.0 (5.0-8.0) 09/02/17 20:32 Ur Specific [place] 1.010 (1.003-1.030) 09/02/17 20:32 Urine Protein Negative mg/dL (NEGATIVE) 09/02/17 20:32 Urine Glucose (UA) Normal mg/dL (Normal) 09/02/17 20:32 Urine Ketones Negative mg/dL (NEGATIVE) 09/02/17 20:32 Urine Blood 2+ (NEGATIVE) H 09/02/17 20:32 Urine Nitrate Negative (NEGATIVE) 09/02/17 20:32 Urine Bilirubin Negative (NEGATIVE) 09/02/17 20:32 Urine Urobilinogen Normal mg/dL (0.2-1.0) 09/02/17 20:32 Ur Leukocyte Esterase 1+ Michael/uL (Negative) H 09/02/17 20:32 Urine WBC (Auto) 2 /hpf (0-5) 09/02/17 20:32 Urine RBC (Auto) 9 /hpf (0-3) H 09/02/17 20:32 Ur Squamous Epith Cells 1 /hpf (0-5) 09/02/17 20:32 Urine Bacteria Occ (<OCC) H 09/02/17 20:32 - Hospital Course Hospital Course: A 57yoF with H/O Rhumatic Heart Disease s/p AVR on Mechanical Valve, and post Surgical Complete Heart Block S/P Pacemaker was taking shower when she Nearly Syncopized associated with Palpitation. She was brought to the ER by the ambulance, and evaluation revealed Elevated Troponin. In the Hospital Course, patient was Evaluated with EKG, Telemonitoring, TTE, Stress test, SINTIA and Pacemaker Interrogation which showed Prolonged QTc, and possible Polymorphic VT. After D/w , EP, Remerone was stopped, PACEmaker adjusted to higher rate, & BB started. Also INR Optimized after Bridging with Heparin infusion. Discharge Exam - Head Exam Head Exam: ATRAUMATIC, NORMAL INSPECTION, NORMOCEPHALIC - Eye Exam Eye Exam: EOMI, Normal appearance, PERRL Pupil Exam: NORMAL ACCOMODATION, PERRL - ENT Exam ENT Exam: Mucous Membranes Moist, Normal Exam - Neck Exam Neck exam: Full Rom, Normal Inspection - Respiratory Exam Respiratory Exam: Clear to PA & Lateral, NORMAL BREATHING PATTERN - Cardiovascular Exam Cardiovascular Exam: +S1, +S2, Systolic Murmur Additional comments: +Click. Midline healed Surgical scar - GI/Abdominal Exam GI & Abdominal Exam: Normal Bowel Sounds - Back Exam Back exam: NORMAL INSPECTION. absent: CVA tenderness (L), CVA tenderness (R) - Neurological Exam Neurological exam: Alert, CN II-XII Intact, Normal Gait, Oriented x3, Reflexes Normal - Psychiatric Exam Psychiatric exam: Normal Affect, Normal Mood - Skin Skin Exam: Dry, Intact, Normal Color, Warm Discharge Plan - Discharge Medications Prescriptions: Metoprolol Succinate XL [Toprol XL] 12.5 mg PO DAILY #30 tab - Follow Up Plan Condition: FAIR Disposition: HOME/ ROUTINE Instructions: Metoprolol (By mouth), Myocardial Infarction (DC), Palpitations ( DC), Syncope (DC), Safe Use of Anticoagulants (DC) Additional Instructions: FOLLOW UP WITH DR. CONKLIN IN HIS OFFICE ON SEPTEMBER 20, AT 4PM---CALL THE OFFICE FOR QUESTIONS. FOLLOW UP WITH DR. GOFF (LUNG DOCTOR) AND DR. ANGULO (HEART DOCTOR) IN THE OFFICE WITHIN 1 WEEK OF DISCHARGE---CALL TO MAKE YOUR APPTS. CONTINUE YOU HOME MEDICATIONS USUAL. CONTINUE YOUR COUMADIN AT YOUR USUAL DOSE. NEW PRESCRIPTION FOR METOPROLOL SUCC 12.5 MG 1 TABLET DAILY FOR YOUR HEART. IF YOU HAVE ANY FURTHER QUESTIONS OR CONCERNS, CONTACT DR. CONKLIN'S OFFICE. Referrals: Merritt Goff MD [Staff Provider] - Abdulkadir Angulo MD [Staff Provider] - Brent Conklin MD [Medical Doctor] -
== END 2017-09-14 09:35 | disposition home or self-care (01) | DRG 281 ==
LOC: C.ER 18:20 → C.9E 21:02 → C.5S 22:43
PROVIDERS: ADMIT Internal Medicine; ATTEND Internal Medicine
PROC: 4A023N7 Measurement of Cardiac Sampling and Pressure, Left Heart, Percutaneous Approach (ICD-10-PCS; principal; 2017-09-10)
PROC: B211YZZ Fluoroscopy of Multiple Coronary Arteries using Other Contrast (ICD-10-PCS; 2017-09-10)
PROC: B215YZZ Fluoroscopy of Left Heart using Other Contrast (ICD-10-PCS; 2017-09-10)
PROC: B24BZZ4 Ultrasonography of Heart with Aorta, Transesophageal (ICD-10-PCS; 2017-09-12)
DX: I21.4 Non-ST elevation (NSTEMI) myocardial infarction (principal); I44.2 Atrioventricular block, complete; Z95.2 Presence of prosthetic heart valve; E32.9 Disease of thymus, unspecified; E78.00 Pure hypercholesterolemia, unspecified; F32.9 Major depressive disorder, single episode, unspecified; I25.10 Atherosclerotic heart disease of native coronary artery without angina pectoris; R55 Syncope and collapse; Z87.891 Personal history of nicotine dependence; Z95.0 Presence of cardiac pacemaker; M54.12 Radiculopathy, cervical region

== ENCOUNTER 2018-01-19 23:00 | Emergency (ER) | payer BC, OTHER ==
[2018-01-19 23:06] VITALS: O2SAT 97
--- NOTE | 2018-01-19 23:53 | C.PDOC ---
History Of Present Illness [id number] female w/PMHx of OA, C-spine herniated disc, hx of heart valve replacement, on Coumadin, presents to ED for evaluation of left wrist and head injury that she sustained [employer], while at work. Patient states she was standing on a chair then slipped and fell down, hit her head over the kitchen cabinet, then landed on her left side/left wrist. At present time, patient reports most of pain is over her left wrist , worse with thumb movement. Otherwise, pt denies LOC, syncope, denies severe headache, dizziness, visual changes, focal deficits, neck pain, back pain, denies weakness, sensory or vascular deficits to B/L UEs and LEs. Ambulate to Ed with stable gait, not in any apparent distress. Pt reports, took Percocet HEATING [employer] " takes for my chronic pain". - HPI Time Seen by Provider: 01/19/18 23:18 Chief Complaint (Nursing): Trauma History Per: Patient History/Exam Limitations: no limitations Onset/Duration Of Symptoms: Hrs Injury Occurred (Timing): Hours Ago: Location Of Injury: Left: Wrist, Anterior: Head Recent travel outside of the [place]: No Past Medical History Reviewed: Historical Data, Nursing Documentation, Vital Signs Vital Signs: Last Vital Signs Temp 97.7 F 01/19/18 23:02 Pulse 81 01/19/18 23:02 Resp 16 01/19/18 23:02 BP 133/69 01/19/18 23:02 Pulse Ox 97 01/19/18 23:59 - Medical History PMH: Anxiety, Back Problems (chronic neck and upper back pain), CAD, Cardia Arrhythmia, Depression, Gastritis, Hypercholesterolemia Surgical History: Appendectomy, Pacemaker, (x 3) - [facility] Procedures APPLICATION OF SPLINT (11/05/14) FLUOROSCOPY OF LEFT HEART USING OTHER CONTRAST (09/02/17) FLUOROSCOPY OF MULTIPLE CORONARY ARTERIES USING OTH CONTRAST (09/02/17) MEASURE OF CARDIAC SAMPL & PRESSURE, L HEART, PERC APPROACH (09/02/17) ULTRASONOGRAPHY OF HEART WITH AORTA, TRANSESOPHAGEAL (09/02/17) Family History: States: Unknown Family Hx - Social History Hx Tobacco Use: No Hx Alcohol Use: No Hx Substance Use: No - Immunization History Hx Tetanus Toxoid Vaccination: No Hx Influenza Vaccination: No Hx Pneumococcal Vaccination: No Review Of Systems Constitutional: Positive for: Other (Hit Head). Negative for: Fever, Chills Eyes: Negative for: Vision Change Gastrointestinal: Negative for: Nausea, Vomiting, Diarrhea Musculoskeletal: Positive for: Other (Left wrist pain with noted deformity). Negative for: Neck Pain, Back Pain Skin: Negative for: Rash Neurological: Negative for: Weakness, Numbness, Other (LOC) Physical Exam - Physical Exam Appears: Well, Non-toxic, No Acute Distress Skin: Normal Color, Warm, Dry, No Rash, No Ecchymosis Head: Atraumatic, Normacephalic Eye(s): bilateral: PERRL, EOMI Nose: No Epistaxis, No Deformity, No Tenderness Oral Mucosa: Moist Tongue: Normal Appearing Lips: Normal Appearing Neck: No Midline Cervical Tenderness, No Paracervical Tenderness, No Step Off Deformity, Supple Chest: Symmetrical, No Tenderness Cardiovascular: Rhythm Regular Respiratory: No Decreased Breath Sounds, No Rales, No Rhonchi, No Wheezing Gastrointestinal/Abdominal: Soft, No Tenderness, No Distention Back: No Vertebral Tenderness Extremity: Normal ROM (mod discomfort to FAROM of Right hand mostly to thumb movemnet due to pain. No obvious deformity, no skin changes, no neurovascular deficist noted distally to injury.), Tenderness (dorsal aspect Left Wrist with mild edema over distal radius), Capillary Refill (less than 2sec to Left hand), No Deformity, Swelling (distal radius) Pulses: Left Radial: Normal Neurological/Psych: Oriented x3, Normal Speech, Normal Cognition, Normal Motor, Normal Sensation, Normal Reflexes Gait: Steady ED Course And Treatment O2 Sat by Pulse Oximetry: 97 (RA) Pulse Ox Interpretation: Normal - Other Rad Left hand X-Ray: Interpreted by Me, Viewed By Me Interpretation: (+) scaphoid fx? - CT Scan/US CT head w/o contrast Other Rad Studies (CT/US): Radiology Report Reviewed CT/US Interpretation: CLINICAL HISTORY: 57 years old, female; Pain; Headache and other: Injury on coumadin; Patient HX: 09-02-17 images. sent. TECHNIQUE: Axial computed tomography images of the head/brain without intravenous contrast. All CT scans at. this facility use one or more dose reduction techniques, viz.: automated exposure control; ma/kV. adjustment per patient size (including targeted exams where dose is matched to indication; i.e. head); . or iterative reconstruction technique. Coronal and sagittal reformatted images were created and reviewed. COMPARISON: CT - HEAD W/O CONTRAST 20:14. FINDINGS: Brain: There is mild diffuse cerebral atrophy present, consistent with this patient's age. No. hemorrhage. No significant white matter disease. Ventricles: Unremarkable. No ventriculomegaly. Bones/joints: Unremarkable. No acute fracture. Soft tissues: Unremarkable. Sinuses: There is mild mucoperiosteal thickening in the ethmoid sinuses, consistent with chronic. sinusitis. Mastoid air cells: Unremarkable as visualized. No mastoid effusion. IMPRESSION: No acute intracranial findings. Chronic sinusitis. Thank you for allowing us to participate in the care of your patient. Dictated and Authenticated by: Rebeca Bailey MD Progress Note: Ordered X-Ray of Left hand/wrist and Head CT. On re-evaluation, pt is afebrile, hemodynamicaly stable. non-toxic. Ambulatory in Ed with stable gait. Head: AT/NC. ENT: no acute findings. neck: SUpple, (-) midline tenderness. Abd: benign. LUE: mild tendernes sover distal radius and Left thenar area. Mild edema over distal radius. No palpable deofrmity, no neurovascular deficits. Neurologicaly intact. Wrist, left xray review (+)? scaphoid fx. Head CT- normal study. Thumb spica splint applied to left hand, Sling place to Left arm. Pt advised on course of ds, complication of possible scaphoid fx. Ref. to F/u with hand specialsit in 2-3 dyas for re-evaluation and further tx as need. Pt understand and agrees with plan. ref. to f/u with PMD, ENT In 2 days for re-eavl. return to ED if any worsening or new changes. Disposition Counseled Patient/Family Regarding: Studies Performed, Diagnosis, Need For Followup, Rx Given - Disposition Referrals: [facility] [Outside] Narayan Charles MD [Staff Provider] - Disposition: HOME/ ROUTINE Disposition Time: 01:22 Condition: STABLE Additional Instructions: Splint and sling for 1 week Ice Light duty to left hand follow up with hand specialist in 2 days for re-evaluation. Return to ED if any worsening or new changes. Instructions: Minor Head Injury, Hand Fracture Forms: [facility] (Maori), Work Excuse - Clinical Impression Clinical Impression: Head injury, Scaphoid fracture - PA / EDUCATION AND TRAINING COORDINATOR / Resident Statement MD/DO has reviewed & agrees with the documentation as recorded. - Scribe Statement The provider has reviewed the documentation as recorded by the Kristineibricardo sEpino All medical record entries made by the Kristineibricardo were at my direction and personally dictated by me. I have reviewed the chart and agree that the record accurately reflects my personal performance of the history, physical exam, medical decision making, and the department course for this patient. I have also personally directed, reviewed, and agree with the discharge instructions and disposition.
--- NOTE | 2018-01-20 01:56 | CT ---
EXAM: CT Head Without Intravenous Contrast CLINICAL HISTORY: 57 years old, female; Pain; Headache and other: Injury on coumadin; Patient HX: 09-02-17 images sent TECHNIQUE: Axial computed tomography images of the head/brain without intravenous contrast. All CT scans at this facility use one or more dose reduction techniques, viz.: automated exposure control; ma/kV adjustment per patient size (including targeted exams where dose is matched to indication; i.e. head); or iterative reconstruction technique. Coronal and sagittal reformatted images were created and reviewed. COMPARISON: CT - HEAD W/O CONTRAST 2017-09-02 20:14 FINDINGS: Brain: There is mild diffuse cerebral atrophy present, consistent with this patient's age. No hemorrhage. No significant white matter disease. Ventricles: Unremarkable. No ventriculomegaly. Bones/joints: Unremarkable. No acute fracture. Soft tissues: Unremarkable. Sinuses: There is mild mucoperiosteal thickening in the ethmoid sinuses, consistent with chronic sinusitis. Mastoid air cells: Unremarkable as visualized. No mastoid effusion. IMPRESSION: No acute intracranial findings. Chronic sinusitis.
[2018-01-20 02:09] VITALS: BP 126/76; PULSE 61; RESP 18; TEMP 97.6
--- NOTE | 2018-01-20 15:27 | RAD ---
PROCEDURE: Left Wrist Radiographs. HISTORY: Injury COMPARISON: No prior study available for comparison however correlation made with prior radiographs left wrist 11/05/2014. The FINDINGS: BONES: Apparent nondisplaced fracture of the navicular JOINTS: Mild multilevel articular degenerative osteoarthritis SOFT TISSUES: Normal. OTHER FINDINGS: None. IMPRESSION: Apparent nondisplaced fracture of the navicular
== END 2018-01-20 02:10 | disposition home or self-care (01) ==
LOC: C.ER 23:00
DX: S62.002A Unspecified fracture of navicular [scaphoid] bone of left wrist, initial encounter for closed fracture (principal); S09.90XA Unspecified injury of head, initial encounter; W17.89XA Other fall from one level to another, initial encounter; Y92.89 Other specified places as the place of occurrence of the external cause; Y99.0 Civilian activity done for income or pay

== ENCOUNTER 2019-01-20 12:46 | Emergency (ER) | payer BC, MEDICAID ==
[2019-01-20] MEDS ORDERED: Sodium Chloride 0.9% 1,000 ML IV STA (13:27)
--- NOTE | 2019-01-20 13:30 | C.PDOC ---
History Of Present Illness 58 y/o F p/w fever, sore throat, body aches since this morning. Also reports chest pain that goes to back for 1 week for which she is scheduled for further testing. Pain in body is soreness, constant, sore throat worse with swallowing, Pains are constant. Denies cough or dyspnea. Denies stiff neck. Denies any dysuria or urinary frequency. Childhood immunizations up to date. Time Seen by Provider: 01/20/19 13:12 Chief Complaint (Nursing): Pain, Chronic Past Medical History Vital Signs: Last Vital Signs Temp 98.2 F 01/20/19 12:56 Pulse 95 H 01/20/19 12:56 Resp 20 01/20/19 12:56 BP 120/65 01/20/19 12:56 Pulse Ox 95 01/20/19 12:56 - Medical History PMH: Anxiety, Back Problems (chronic neck and upper back pain), CAD, Cardia Arrhythmia, Depression, Gastritis, Hypercholesterolemia Denies: Chronic Kidney Disease Surgical History: Appendectomy, Pacemaker, (x 3) - [email or web address] Procedures APPLICATION OF SPLINT (11/05/14) FLUOROSCOPY OF LEFT HEART USING OTHER CONTRAST (09/02/17) FLUOROSCOPY OF MULTIPLE CORONARY ARTERIES USING OTH CONTRAST (09/02/17) MEASURE OF CARDIAC SAMPL & PRESSURE, L HEART, PERC APPROACH (09/02/17) ULTRASONOGRAPHY OF HEART WITH AORTA, TRANSESOPHAGEAL (09/02/17) Family History: States: Unknown Family Hx - Social History Hx Tobacco Use: No Hx Alcohol Use: No Hx Substance Use: No - Immunization History Hx Tetanus Toxoid Vaccination: No Hx Influenza Vaccination: No Hx Pneumococcal Vaccination: No Review Of Systems Except As Marked, All Systems Reviewed And Found Negative. Respiratory: Negative for: Shortness of Breath Gastrointestinal: Negative for: Vomiting Physical Exam - Physical Exam Additional Physical Exam Comments: gen appears uncomfortable head nc/at eyes perrl ent mmm. pharyngeal erythema with large tonsils without exudates. uvula midline. no abscess seen. neck supple. no rigidity chest no tenderness cv reg rate lungs cta b/l abd soft, nt nd back no cva tenderness skin no rash neuro alert, no focal deficit extremities no edema. bilateral wrist braces. ED Course And Treatment - Laboratory Results Result Diagrams: 01/20/19 14:38 01/20/19 14:38 O2 Sat by Pulse Oximetry: 95 Medical Decision Making Medical Decision Making: differential includes influenza vs influenza like illness. will send 1 troponin to effectively rule out VA in this chest pain of over 1 week. will treat sore throat empirically with amoxicillin. instructed to watch for worsening symptoms including drooling, stiff neck, swelling in face, or any other problem. Disposition - Disposition Disposition: HOME/ ROUTINE Disposition Time: 15:25 Condition: GOOD Prescriptions: Amoxicillin 875 mg PO BID #20 tablet Ibuprofen [Motrin] 1 tab PO Q6 #30 tab Instructions: Sore Throat in Adults Forms: [facility] (Puerto Rican), Work Excuse - Clinical Impression Clinical Impression: Tonsillitis
[2019-01-20] MEDS ORDERED: Sodium Chloride 0.9% 1,000 ML ONE (13:58)
[2019-01-20 14:41] LABS: BASO # 0.1 K/uL (0.0-0.2); BASO % 0.5 % (0.0-2.0); EOS % 0.1 % (0.0-4.0); HEMOGLOBIN 11.3 g/dL (11.0-16.0); LYMPH # 1.2 K/uL (1.0-4.3); LYMPH % 11.3 % (20.0-40.0); MEAN CELL VOLUME 88.1 fL (81.0-99.0); MEAN CORPUSCULAR HGB CONC 34.1 g/dL (33.0-37.0); MEAN PLATELET VOLUME 8.7 fL (7.2-11.7); MONO # 0.7 K/uL (0.0-0.8); MONO % 6.9 % (0.0-10.0); NEUT # 8.6 K/uL (1.8-7.0); NEUT % 81.2 % (50.0-75.0); RBC 3.75 Mil/uL (3.80-5.20); RED CELL DISTRIBUTION WIDTH 13.5 % (11.5-14.5); WHITE BLOOD COUNT 10.6 K/uL (4.8-10.8)
[2019-01-20 14:54] LABS: ALB/GLOB RATIO 1.7 (1.0-2.1); ALBUMIN 4.7 g/dL (3.5-5.0); ALT/SGPT 14 U/L (9-52); AST/SGOT 20 U/L (14-36); BLOOD UREA NITROGEN 10 mg/dL (7-17); GFR NON-AFRICAN AMERICAN > 60; LIPASE 42 U/L (23-300)
[2019-01-20 15:59] VITALS: BP 118/68; PULSE 74; RESP 17; TEMP 99; O2SAT 97
--- NOTE | 2019-01-21 12:15 | CARD ---
APPROVED REPORT Date of service: 01/20/2019 EKG Measurement Heart [id number] <Conclusion> Atrial-sensed ventricular-paced rhythm Abnormal ECG
== END 2019-01-20 16:08 | disposition home or self-care (01) ==
LOC: C.ER 12:46
DX: J03.90 Acute tonsillitis, unspecified (principal)
CPT/HCPCS: 80053; 83690; 84484; 85025; 87804; 93005; 96361; 96374; 96375; 99285; J1100; J1885; J7030